=== PATIENT | male | born 1950 | race Caucasian/White ===

== ENCOUNTER 2023-07-27 19:31 | Emergency (ER) | payer MEDICARE, SELFPAY ==
[2023-07-27 19:37] VITALS: BP 123/75; PULSE 93; RESP 18; TEMP 36.8; O2SAT 98; BMI 33.5
--- NOTE | 2023-07-27 19:47 | PC.NURSE ---
area slightly bleeding after band aids removed, finger lac placed in hibiclens soak
--- NOTE | 2023-07-27 19:55 | ED.UPPEXIN1 ---
HPI - Extremity Injury (Upper) General Chief Complaint: Skin/Abscess/Foreign Body Stated Complaint: EXTREMITY INJURY UPPER Time Seen by Provider: 07/27/23 19:51 Source: patient Mode of arrival: walk-in History of Present Illness HPI narrative: Patient is a 73-year-old male who presents to the emergency department for 2 small lacerations to the dorsum of the right fifth finger. Patient states he was working on a car part when he lacerated the dorsum of the finger. No significant pain. Unknown last tetanus. Bleeding is well-controlled. He is right-hand dominant. Related Data Allergies Allergy/AdvReac Type Severity Reaction Status Date / Time No Known Drug Allergies Allergy Verified 07/27/23 19:41 Review of Systems ROS Constitutional Denies: fever or chills Ears, nose, mouth, and throat Denies: throat pain or nasal congestion Respiratory Denies: shortness of breath Gastrointestinal Denies: nausea or vomiting Integumentary/Breast Denies: rash Hematologic/Lymphatic Denies: easy bruising or easy bleeding Exam Narrative Exam Narrative: Gen.: Awake, alert, in no distress Head: Normocephalic, atraumatic ENT: Moist mucous membranes Respiratory: No respiratory distress Extremities: Moves extremities equally, 1.5 cm laceration over the PIP joint of the dorsum of the right fifth finger. Laceration is superficial, there is an adjacent 1 cm laceration Psych: Normal mood and affect Neuro: No focal neuro deficit Skin: Warm, dry Constitutional Vital Signs, click to edit/add: Last Vital Signs Temp 98.2 F 07/27/23 19:37 Pulse 93 H 07/27/23 19:37 Resp 18 07/27/23 19:37 BP 123/75 07/27/23 19:37 Pulse Ox 98 07/27/23 19:37 Course Vital Signs Vital signs: Vital Signs Temperature 98.2 F 07/27/23 19:37 Pulse Rate 93 H 07/27/23 19:37 Respiratory Rate 18 07/27/23 19:37 Blood Pressure 123/75 07/27/23 19:37 Pulse Oximetry 98 07/27/23 19:37 Temperature 98.2 F 07/27/23 19:37 Pulse Rate 93 H 07/27/23 19:37 Respiratory Rate 18 07/27/23 19:37 Blood Pressure 123/75 03/22/24 19:37 Pulse Oximetry 98 07/27/23 19:37 MDM - Extremity Injury (Upper) MDM Narrative Medical decision making narrative: Sutures placed with no difficulty, please see procedure Note for details. Follow-up with PCP and return to the ER if symptoms change or worsen. Tetanus updated in the ER. Laceration repair: Done under sterile conditions. The use of Shur-Clens prep the area. Local injection with lidocaine 1% was used, approximately 3 cc. The wound was irrigated copiously with normal saline. The wound was explored there was no evidence of foreign material. The laceration was approximated with 3-0 nylon. 3 simple interrupted sutures were placed. Patient tolerated the procedure well. The patient was neurovascularly intact post. the patient had bacitracin applied to the laceration and a dry sterile dressing was place. The patient will need to follow-up in the next 7-10 days for removal Medical Records Attestation: I reviewed the patient's medical records. Discharge Plan Discharge Stand Alone Forms: Portal Instructions Chief Complaint: Skin/Abscess/Foreign Body Clinical Impression: Finger laceration Patient Disposition: Home, Self-Care Time of Disposition Decision: 19:54 Condition: Good Print Language: Nepalese Instructions: Finger Laceration (ED) Additional Instructions: Sutures removed in 7-10 days with your PCP Referrals: Physician,Non-Staff, MD [Primary Care Provider] - 1 week Discharge Date/Time: 07/27/23 20:22
[2023-07-27] MEDS: BACITRACIN 0.9 GM PACKET 1 PACKET TOPICAL (20:03)
[2023-07-27] MEDS: LIDOCAINE HCL 1% 100 MG/10 ML MDV INJ (20:04)
[2023-07-27] MEDS: ADACEL DIPH,PERTUSS(ACELL),TET VAC/PF 0.5 ML ADULT SYRINGE IM (20:04)
== END 2023-07-27 20:22 | disposition home or self-care (01) ==
PROVIDERS: Emergency Provider Emergency Medicine
DX: S61.216A Laceration without foreign body of right little finger without damage to nail, initial encounter (principal); Z23 Encounter for immunization; W26.8XXA Contact with other sharp object(s), not elsewhere classified, initial encounter
CPT/HCPCS: 12001; 90471; 90715; 99284

== ENCOUNTER 2024-03-25 07:55 | Emergency (ER) | payer MEDICARE, SELFPAY ==
[2024-03-25 07:58] VITALS: BP 146/53; PULSE 74; TEMP 36.4; O2SAT 99; BMI 31.9
--- NOTE | 2024-03-25 08:10 | ED_ITS ---
HPI - Wound/Laceration General Chief Complaint: Wound/Laceration Stated Complaint: LACERATION Time Seen by Provider: 03/25/24 07:57 Source: patient Mode of arrival: walk-in History of Present Illness HPI narrative: 74-year-old male presents to the emergency department for laceration to the palm of his left hand which was sustained yesterday on a sharp edge of metal. There is no concern no foreign body and there was no glass involved he had a tetanus shot within the last year. His wanted him to come in to get checked. Related Data Home Medications ?Medication ?Instructions ?Recorded ?Confirmed atorvastatin 20 mg tablet mg 03/25/24 latanoprost 0.005 % eye drops drp ophthalmic (eye) 03/25/24 lisinopril 40 mg tablet mg 03/25/24 metformin 850 mg tablet mg 03/25/24 metoprolol succinate 25 mg mg PO 03/25/24 tablet,extended release 24 hr pioglitazone 30 mg tablet mg 03/25/24 spironolactone 25 mg tablet mg 03/25/24 Previous Rx's ?Medication ?Instructions ?Recorded cephalexin 500 mg capsule 500 mg PO TID 7 days #21 caps 03/25/24 Allergies Allergy/AdvReac Type Severity Reaction Status Date / Time No Known Drug Allergies Allergy Verified 03/25/24 08:02 Review of Systems ROS Narrative A ten point review of systems is negative except as noted above. PFSH PFSH Social History Little interest or pleasure in doing things: not at all Feeling down, depressed, or hopeless: not at all Exam Narrative Exam Narrative: Nurses note and vital signs reviewed and patient is not hypoxic. General: The patient appears well and in no apparent distress. Patient is resting comfortably on cart. Skin: Warm, dry, no pallor noted. There is no rash noted. Head: Normocephalic, atraumatic Eye: Normal conjunctiva, no drainage Ears, Nose, Mouth, and Throat: oral mucosa is moist. Nares patent. Cardiovascular: Not tachycardic Respiratory: Patient is in no distress, no accessory muscle use GI: Nontender Musculoskeletal: On the palm of his left hand approximately is a curved laceration 1.5 cm in length. It appears to be healing. There is mild infl ammation around it and some minimal erythema but no purulent drainage or lymphangitis. Neurological: A&O, normal speech Psychiatric: Cooperative Constitutional Vital Signs, click to edit/add: Last Vital Signs Temp 97.6 F 03/25/24 07:58 Pulse 74 03/25/24 07:58 Resp 18 03/25/24 07:58 BP 146/53 H 03/25/24 07:58 Pulse Ox 99 03/25/24 07:58 O2 Del Method Room Air 03/25/24 07:58 Course Vital Signs Vital signs: Vital Signs Temperature 97.6 F 03/25/24 07:58 Pulse Rate 74 03/25/24 07:58 Respiratory Rate 18 03/25/24 07:58 Blood Pressure 146/53 H 03/25/24 07:58 Pulse Oximetry 99 03/25/24 07:58 Oxygen Delivery Method Room Air 03/25/24 07:58 Temperature 97.6 F 03/25/24 07:58 Pulse Rate 74 03/25/24 07:58 Respiratory Rate 18 03/25/24 07:58 Blood Pressure 146/53 H 03/25/24 07:58 Pulse Oximetry 99 03/25/24 07:58 Oxygen Delivery Method Room Air 03/25/24 07:58 MDM - Wound/Laceration MDM Narrative Medical decision making narrative: Tetanus is up-to-date. Sutures are not indicated. He is placed on Keflex. Treatment diagnosis and follow-up were discussed with the patient. Differential Diagnosis Differential diagnosis: Likely laceration and avulsion of skin Discharge Plan Discharge Chief Complaint: Wound/Laceration Clinical Impression: Laceration Patient Disposition: Home, Self-Care Time of Disposition Decision: 08:09 Condition: Good Mode of Transportation: Private Vehicle Prescriptions / Home Meds: New cephalexin 500 mg capsule 500 mg PO TID 7 Days Qty: 21 0RF No Action latanoprost 0.005 % drops OPHTHALMIC (EYE) atorvastatin 20 mg tablet metformin 850 mg tablet spironolactone 25 mg tablet metoprolol succinate 25 mg tablet extended release 24 hr PO pioglitazone 30 mg tablet lisinopril 40 mg tablet Print Language: Slovenian Instructions: Laceration Without Closure (ED) Referrals: Physician,Non-Staff, MD [Primary Care Provider] - 1 week
== END 2024-03-25 08:29 | disposition home or self-care (01) ==
PROVIDERS: Emergency Provider Emergency Medicine
DX: S61.412A Laceration without foreign body of left hand, initial encounter (principal); W26.8XXA Contact with other sharp object(s), not elsewhere classified, initial encounter
CPT/HCPCS: 99283

== ENCOUNTER 2024-06-23 11:14 | Outpatient (OUT) | payer MEDICARE, SELFPAY ==
--- NOTE | 2024-06-23 | XR_ITS ---
The [address] [address] Patient Name: TITUS VERA MRN: [id number] date: 1950 Sex: M Assigned Patient Location: Current Patient Location: Accession/Order Number: [id number] Exam Date: 06/23/2024 11:59 Report Date: 06/23/2024 15:42 At the request of: AYESHA FLORES Procedure: XR femur LT 2V EXAM: XR hip LT 2V w/ pelvis, XR femur LT 2V 06/23/2024. HISTORY: LEFT HIP AND PELVIS PAIN COMPARISON: Radiographs of the pelvis and right hip obtained at [facility] 08/03/2022. FINDINGS: Pelvis and left hip: There are degenerative changes again seen of the visualized lower lumbar spine and sacroiliac joints. There are also at least moderate focal degenerative changes of the superolateral aspect of the right hip joint again seen. There is a dynamic hip screw in the left femoral head/neck and there is an intramedullary nail extending through the femoral shaft with a single distal interlocking screw. No hardware complication is seen. No acute fracture or dislocation is identified. There is no significant joint space narrowing of the left hip. Left femur: There are vascular calcifications medially. No acute fracture or dislocation is seen. There appears to be at least moderate narrowing of the medial femorotibial compartment of the knee. No joint effusion is seen. XR/XR femur LT 2V IMPRESSION: 1. There are postsurgical changes involving the left femur and left hip as described above without evidence of hardware complication. No acute fracture or dislocation is seen. 2. 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 3. There again appear to be at least moderate focal degenerative changes of the superolateral aspect of the right hip joint. Electronically authenticated by: YANNICK CONWAY Date: 06/23/2024 15:42
--- NOTE | 2024-06-23 | XR_ITS ---
The [address] [address] Patient Name: TITUS VERA MRN: [id number] date: 1950 Sex: M Assigned Patient Location: Current Patient Location: Accession/Order Number: [id number] Exam Date: 06/23/2024 11:42 Report Date: 06/23/2024 15:42 At the request of: AYESHA FLORES Procedure: XR hip LT 2V w/ pelvis EXAM: XR hip LT 2V w/ pelvis, XR femur LT 2V 06/23/2024. HISTORY: LEFT HIP AND PELVIS PAIN COMPARISON: Radiographs of the pelvis and right hip obtained at [facility] 08/03/2022. FINDINGS: Pelvis and left hip: There are degenerative changes again seen of the visualized lower lumbar spine and sacroiliac joints. There are also at least moderate focal degenerative changes of the superolateral aspect of the right hip joint again seen. There is a dynamic hip screw in the left femoral head/neck and there is an intramedullary nail extending through the femoral shaft with a single distal interlocking screw. No hardware complication is seen. No acute fracture or dislocation is identified. There is no significant joint space narrowing of the left hip. Left femur: There are vascular calcifications medially. No acute fracture or dislocation is seen. There appears to be at least moderate narrowing of the medial femorotibial compartment of the knee. No joint effusion is seen. XR/XR hip LT 2V w/ pelvis IMPRESSION: 1. There are postsurgical changes involving the left femur and left hip as described above without evidence of hardware complication. No acute fracture or dislocation is seen. 2. 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 3. There again appear to be at least moderate focal degenerative changes of the superolateral aspect of the right hip joint. Electronically authenticated by: YANNICK CONWAY Date: 06/23/2024 15:42
== END 2024-06-23 11:15 | disposition home or self-care (01) ==
LOC: EC 11:14
PROVIDERS: Visit Provider Orthopaedic Surgery
DX: M25.552 Pain in left hip (principal); Z98.890 Other specified postprocedural states
CPT/HCPCS: 73502; 73552

== ENCOUNTER 2024-07-01 09:56 | Outpatient (RCR) | payer MEDICARE, SELFPAY | END 2024-08-14 07:23 | disposition home or self-care (01) | LOC: PT 09:56 | PROVIDERS: Visit Provider Orthopaedic Surgery | DX: S72.002D Fracture of unspecified part of neck of left femur, subsequent encounter for closed fracture with routine healing (principal); M25.552 Pain in left hip; R26.89 Other abnormalities of gait and mobility; R26.9 Unspecified abnormalities of gait and mobility | CPT/HCPCS: 97110; 97112; 97116; 97161; 97530 ==

== ENCOUNTER 2024-07-21 10:31 | Outpatient (OUT) | payer MEDICARE, SELFPAY ==
--- NOTE | 2024-07-21 | XR_ITS ---
The [address] [address] Patient Name: TITUS VERA MRN: [id number] date: 1950 Sex: M Assigned Patient Location: Current Patient Location: Accession/Order Number: [id number] Exam Date: 07/21/2024 13:19 Report Date: 07/21/2024 13:20 At the request of: AYESHA FLORES MD Procedure: XR hip LT 2V w/ pelvis Left hip 2 views of the 1 view pelvis. Reason for exam: Follow-up from surgery April. Left hip/pelvis pain. COMPARISON: Left hip series 06/23/2024. FINDINGS: Left hip hardware partially visualized by loops of hardware complication. No acute fracture line is seen. Mild degenerative changes of the hips. Degenerative changes noted involving the SI joints and pubic symphysis. XR/XR hip LT 2V w/ pelvis IMPRESSION: Partially visualized left hip hardware without radiographic complication. No acute fracture line is seen. Impression dictated by: Juancho Menjivar Jr., D.O.07/21/2024 1:20 PM Dictation Location: [place] [address] Electronically authenticated by: [id number] Date: 07/21/2024 13:20
--- OUTSIDE RECORDS SUMMARY | 2024-07-21 10:41 | XMS_ITS | CCD ---
Author Organization [facility] Care Team Providers Care Wood Technologist Name Role Phone DR PIO FLORES Admitting Unavailable SANDRA, DR SUERO Attending Unavailable SANDRA, DR SUERO Consulting Unavailable MISC, DR BUTLER Primary Care Unavailable Osbaldo Feliz Consulting Unavailable Regine Birmingham Consulting Unavailable Regine Vital Unavailable Mummert DO, Pablo W Primary Care Provider MUMMERT, PABLO W Primary Care Unavailable KATERYNA MATHIS Admitting Unavailable KATERYNA MATHIS Attending Unavailable KATERYNA MATHIS Referring Unavailable MUMMERT, PABLO W Primary Care Unavailable MD Regine Vital Attending Provider [phone] MD Regine Vital Attending Provider Mummert, DO Pablo Primary Care Provider SABINA DAS Attending Unavailable SABINA DAS Attending Unavailable ZASABINA CHRISTIANSON Attending Unavailable Mummert DO, Pablo W Primary Care Provider [phone] Hernan OD, Georges Unavailable Mummert, Pablo Primary Care Unavailable Hawk Espinosa Attending Unavailable Hawk Espinosa Admitting Unavailable Mummert DO, Pablo Primary Care Unavailable Mummert DO, Pablo Attending Unavailable Mummert DO, Pablo Attending Unavailable Mummert DO, Pablo Primary Care Unavailable Mummert DO, Pablo Attending Unavailable Mummert DO, Pablo Primary Care Unavailable Mummert DO, Pablo Attending Unavailable Mummert DO, Pablo Primary Care Unavailable Mummert DO, Pablo Primary Care Unavailable Mummert DO, Pablo Admitting Unavailable Mummert DO, Pablo Attending Unavailable Mummert DO, Pablo Primary Care Unavailable Mummert DO, Pablo Attending Unavailable Mummert DO, Pablo Admitting Unavailable Mummert DO, Pablo Attending Unavailable Mummert DO, Pablo Admitting Unavailable Mummert DO, Pablo Primary Care Unavailable Mummert DO, Pablo Attending Unavailable Mummert DO, Pablo Admitting Unavailable Mummert DO, Pablo Primary Care Unavailable Kateryna Mathis Admitting Unavailable Kateryna Mathis Attending Unavailable Mummert DO, Pablo Primary Care Unavailable Mummert DO, Pablo Attending Unavailable Mummert DO, Pablo Primary Care Unavailable Mummert DO, Pablo Primary Care Unavailable Mummert DO, Pablo Attending Unavailable Mummert DO, Pablo Admitting Unavailable Mummert DO, Pablo Primary Care Unavailable Mummert DO, Pablo Attending Unavailable Mummert DO, Pablo Attending Unavailable Mummert DO, Pablo Primary Care Unavailable Medications Current Medications Medication Drug Class(es) Dates Sig (Normalized) Sig (Original) aspirin 81 mg delayed release oral tablet (2 sources) Platelet Aggregation Inhibitor, Nonsteroidal Anti-inflammatory Drug take 1 tablet by mouth in the morning aspirin 81 MG EC tablet Take 81 mg by mouth in the morning. Active cefepime (MAXIPIME) 1000 mg IVPB minibag (1 source) Start: 12-06-2021 End: 12-11-2021 cefepime (MAXIPIME) 1000 mg IVPB minibag ciprofloxacin 500 mg oral tablet (2 sources) Quinolone Antimicrobial Start: 12-23-2021 take 1 tablet by mouth every twelve hours ciprofloxacin (Cipro) 500 MG tablet Take 500 mg by mouth every 12 (twelve) hours. 12/23/2021 Active fluticasone propionate 0.05 mg/actuat metered dose nasal spray (4 sources) Corticosteroid Start: 02-10-2022 fluticasone (Flonase) 50 MCG/ACT nasal spray Nasal for 30 Days 02/10/2022 Active Fluticasone Prop ionate Active latanoprost 0.05 mg/ml ophthalmic solution (8 sources) Prostaglandin Analog Start: 04-25-2023 End: 04-24-2024 take 1 drop(s) into the eye(s) at bedtime latanoprost (Xalatan) 0.005 % ophthalmic solution Indications: Primary open angle glaucoma (POAG) of both eyes, mild stage (CMS/HCC) Administer 1 drop into both eyes at bedtime 2.5 mL 6 04/25/2023 04/24/2024 Active Start: 12-07-2021 1 drop, Both E yes, NIGHTLY, First dose on Sun12/07/21 at 2100, Until Discontinued Latanoprost Acti ve take 1 drop(s) into the eye(s) once daily latanoprost (XALATAN) 0.005 % ophthalmic solution Place 1 drop into both eyes nightly 0 Active ondansetron (ZOFRAN-ODT) disintegrating tablet 4 mg (1 source) Start: 12-06-2021 ondansetron (ZOFRAN-ODT) disintegrating tablet 4 mg pioglitazone 30 mg oral tablet (9 sources) Peroxisome Proliferator Receptor alpha Agonist, Peroxisome Proliferator Receptor gamma Agonist, Thiazolidinedione Start: 03-27-2022 pioglitazone (Actos) 30 MG tablet 1 (one) time each day at the same time. 03/27/2022 Active Start: 12-06-2021 take 30 mg by mouth once daily 30 mg, Oral, DAILY, First dose on Sun12/06/21 at 1615, Until Discontinued take 1 tablet by nehemiah th in the morning pioglitazone (ACTOS) 30 MG tablet Take 30 mg by mouth in the morning. 0 Active Actos Active prednisoLONE acetate 10 mg/ml ophthalmic suspension (2 sources) Corticosteroid Start: 05-18-2022 take 1 drop(s) into the eye(s) four times daily prednisoLONE acetate (Pred-Forte) 1 % ophthalmic suspension INSTILL 1 DROP INTO AFFECTED EYE FOUR TIMES A DAY FOR 4 DAYS 05/18/2022 Active sildenafil (2 sources) Phosphodiesterase 5 Inhibitor Viagra Active Spironolactone (2 sources) Aldosterone Antagonist Spironola ctone Active Completed/Discontinued Medications Medication Drug Class(es) Dates Sig (Normalized) Sig (Original) amLODIPine 5 mg oral tablet (3 sources) Dihydropyridine Calcium Channel Kathleen Start: 03-24-2021 End: 11-30-2021 take 1 tablet by mouth in the morning amLODIPine (NORVASC) 5 MG tablet Take 5 mg by mouth in the morning. 0 03/24/2021 11/30/2021 Discontinued (LIST CLEANUP) amLODIPine Benzoate 1 MG/ML (4 sources) take 1 mg by mouth once daily amLODIPine Benzoate 1 MG/ML 5 ml Orally Once a day Not-Taking take 1 mg by mouth once daily am LODIPine Benzoate 1 MG/ML 5 ml Orally Once a day Active atorvastatin 10 mg oral tablet (8 sources) HMG-CoA Reductase Inhibitor Start: 12-06-2021 take 10 mg by mouth once daily 10 mg, Oral, DAILY, First dose on Sun12/06/21 at 1445, Until Discontinued Start: 03-24-2021 take 1 tablet by nehemiah th in the morning atorvastatin (LIPITOR) 10 MG tablet Take 10 mg by mouth in the morning. 0 03/24/2021 Active take 1 tablet by nehemiah th in the morning atorvastatin (Lipitor) 20 MG tablet Take 20 mg by mouth in the morning. Active take 1 tablet by nehemiah th every twenty-four hours Atorvastatin Calcium 40 MG 1 tablet Orally Once a day Active belladonna alkaloids 16.2 mg / opium 30 mg rectal suppository (1 source) Start: 12-06-2021 take 30 mg rectal route every six hours as needed mg dosing is based on opium component 30 mg, Rectal, EVERY 6 HOURS PRN, Starting on Sun12/06/21 at 1415, Until Discontinued, Bladder Spasms PRN for bladder spasms. calcium chloride 0.0014 meq/ml / potassium chloride 0.004 meq/ml / sodium chloride 0.103 meq/ml / sodium lactate 0.028 meq/ml injectable solution (1 source) Start: 12-07-2021 End: 12-06-2021 lactated ringers infusion Start: 12-07-2021 End: 12-06-2021 lactated ringers infusion docusate sodium 100 mg oral capsule (1 source) Start: 12-06-2021 take 100 mg by mouth twice daily 100 mg, Oral, 2 TIMES DAILY, First dose on Sun12/06/21 at 2100, Until Discontinued Do not crush or break. 0.4 ml enoxaparin sodium 100 mg/ml prefilled syringe (1 source) Low Molecular Weight Heparin Start: 12-07-2021 inject 40 mg by subcutaneous injection once daily 40 mg, SubCUTAneous, DAILY, First dose on Sun12/07/21 at 0900, Until Discontinued Indication of Use: Prophylaxis-DVT/PE insulin, regular, human 100 unt/ml injectable solution (1 source) Insulin Start: 12-06-2021 End: 12-06-2021 insulin regular (HUMULIN R;NOVOLIN R) injection 4 Units Start: 12-06-2021 End: 12-06-2021 insulin regular (HUMULIN R;N OVOLIN R) injection 4 Units lisinopril 40 mg oral tablet (9 sources) Angiotensin Converting Enzyme Inhibitor Start: 03-24-2021 take 40 mg by mouth once daily 40 mg, Oral, DAILY, First dose on Sun12/06/21 at 1615, Until Discontinued Lisinopril Activ e metFORMIN hydrochloride 850 mg oral tablet (9 sources) Biguanide Start: 03-24-2021 take 850 mg by mouth twice daily at mealtime 850 mg, Oral, 2 TIMES DAILY WITH MEALS, First dose on Sun12/06/21 at 1700, Until Discontinued metFORMIN HCl Ac tive 24 hr metoprolol succinate 25 mg extended release oral tablet (7 sources) beta-Adrenergic Kathleen Start: 12-07-2021 take 25 mg by mouth once daily 25 mg, Oral, DAILY, First dose on Sun12/07/21 at 0900, Until Discontinued Do not crush or chew. Start: 11-10-2021 take 1 tablet by nehemiah th every twenty-four hours metoprolol succinate XL (Toprol-XL) 25 MG 24 hr tablet Oral for 90 Days 11/10/2021 Active Start: 11-10-2021 take 1 tablet by nehemiah th in the morning metoprolol succinate (TOPROL XL) 25 MG extended release tablet Take 25 mg by mouth in the morning. 0 11/10/2021 Active Metoprolol Succi allie Active 24 hr oxybutynin chloride 5 mg extended release oral tablet (7 sources) Cholinergic Muscarinic Antagonist Start: 03-24-2021 End: 11-30-2021 take 1 tablet by mouth in the morning oxybutynin (DITROPAN-XL) 5 MG extended release tablet Take 5 mg by mouth in the morning. 0 03/24/2021 11/30/2021 Discontinued (LIST CLEANUP) take 1 tablet by mouth once brandon y oxybutynin XL (Ditropan-XL) 5 MG 24 hr tablet TAKE 1 TABLET BY MOUTH EVERY DAY Oral for 90 Days Active apply 1 dose transde rmal route two times weekly Oxybutynin 3.9 MG/24HR 1 patch to skin Transdermal Two times a Week Not-Taking apply 1 dose transde rmal route two times weekly Oxybutynin 3.9 MG/24HR 1 patch to skin Transdermal Two times a Week Active 1000 ml sodium chloride 9 mg/ml injection (1 source) Start: 12-06-2021 End: 12-07-2021 IntraVENous, at 100 mL/hr, CONTINUOUS, Starting on Sun12/06/21 at 1445 tamsulosin hydrochloride 0.4 mg oral capsule (6 sources) alpha-Adrenergi c Kathleen Start: 03-24-2021 take 0.4 mg by mouth once daily 0.4 mg, Oral, DAILY, First dose on Sun12/06/21 at 1615, Until Discontinued Do not crush or break. traMADol hydrochloride 50 mg oral tablet (1 source) Opioid Agonist Start: 12-06-2021 take 50 mg by mouth every six hours as needed 50 mg, Oral, EVERY 6 HOURS PRN, Starting on Sun12/06/21 at 1415, Until Discontinued, Pain Severe (7-10), Pain Moderate (4-6) Problems Problem Classification Problem Date Documented Date Episodic/Chronic Cataract (5 sources) Age-related nuclear cataract of right eye; Translations: [Age-related nuclear cataract, right eye] Onset: 11-01-2022 Resolved: 04-25-2023 04-25-2023 Chronic Conditions associated with dizziness or vertigo (4 sources) Dizziness and giddiness; Translations: [DIZZINESS AND GIDDINESS] Onset: 09-11-2021 Episodic Diabetes mellitus without complication (3 sources) Type 2 diabetes mellitus without complication; Translations: [Type 2 diabetes mellitus without complications] Onset: 04-25-2023 04-25-2023 Chronic Essential hypertension (8 sources) Essential hypertension; Translations: [Essential (primary) hypertension] Onset: 06-01-2021 Resolved: 06-01-2021 Chronic Fluid and electrolyte disorders (1 source) Hypo-osmolality and hyponatremia; Translations: [HYPO-OSMOLALITY AND HYPONATREMIA] Onset: 09-13-2021 Episodic Glaucoma (3 sources) Primary open angle glaucoma; Translations: [Primary open-angle glaucoma, bilateral, mild stage] Onset: 11-01-2022 11-01-2022 Chronic Hyperplasia of prostate (3 sources) Benign prostatic hyperplasia; Translations: [Benign prostatic hyperplasia with lower urinary tract symptoms] Onset: 12-06-2021 Chronic Inflammation; infection of eye (except that caused by tuberculosis or sexually transmitteddisease) (3 sources) Blepharitis of upper and lower eyelids of bilateral eyes; Translations: [Unspecified blepharitis right eye, upper and lower eyelids] Onset: 11-01-2022 11-01-2022 Episodic Other eye disorders (3 sources) Dry eyes; Translations: [Dry eye syndrome of bilateral lacrimal glands] Onset: 11-01-2022 11-01-2022 Episodic Other non-traumatic joint disorders (1 source) Pain in right ankle and joints of right foot; Translations: [Pain in right ankle and joints of right foot] Onset: 03-28-2024 Episodic Other nutritional; endocrine; and metabolic disorders (8 sources) Body mass index 30+ - obesity; Translations: [Body mass index (BMI) 31.0-31.9, adult] Chronic Other nutritional; endocrine; and metabolic disorders (1 source) Body mass index (BMI) 31.0-31.9, adult Onset: 06-01-2021 Resolved: 06-01-2021 Chronic Other nutritional; endocrine; and metabolic disorders (2 sources) Body mass index (BMI) 32.0-32.9, adult Chronic Residual codes; unclassified (14 sources) Obstructive sleep apnea syndrome; Translations: [Obstructive sleep apnea (adult) (pediatric)] Chronic Residual codes; unclassified (5 sources) Sleep apnea; Translations: [Sleep apnea, unspecified] Chronic Residual codes; unclassified (4 sources) Obstructive sleep apnea (adult) (pediatric) Onset: 06-01-2021 Resolved: 10-26-2021 Chronic Residual codes; unclassified (1 source) Idiopathic sleep related nonobstructive alveolar hypoventilation Onset: 06-01-2021 Resolved: 06-01-2021 Chronic Residual codes; unclassified (1 source) Other specified health status Episodic Residual codes; unclassified (1 source) Other amnesia; Translations: [Other amnesia] Onset: 06-24-2024 Episodic Results Test Name Value Interpretation Reference Range Facility Patient Provided Health Data on 07-02-2024 Patient Provided Health Data [id number]#[facility] Provider Orders [id number]#[facility] [id number]#1 .00[facility] Coding Summaryon 07-01-2024 Coding Summary HTMLBase 64 TtxltwlwHCi5xPh+PGhlY WQ+FM0FPDEiF03okHNgxK 0tP9EAZAjQMuxsUGJYEWz RVkDskaYiGJ6huREvHLQf IC8+MK6xKPWlZjgpgYPvl 6C2nTF0B71iaf5iOVwqrM F3NLLvAgGngnqja9eebRa 6IDcuNmluOyBt TUIdoE98QCE8bC77Ct67x VBwsRSdy1zlsDh7HpJdMB PjAFF2iSjhREwfg3AvCYH oD58lbVFij4A1 JDFyzGsscHYxEaQtvWQ3a N0eAJxyvxabh7zkmhktVm q5cg94gGWxn5C3eYB1N1T sgeX3QIBewPAr EcozpPMEzY7qmlzor4nph yqjEfOiDMPlVLd3NUa1XO MoxQwsDyZyXY84SLM3SRX gkcQhB1BrLFGf oVleItY3u2Y9Ud3CI5EKF rfuA4FGFUGPLClxvEU+PC 20oo22Y6IdAgqsCpo6NWL yLWV6lOS3vT1b DBSiDIckw1N5vNQ4P9Bda wKkme0fg3ehVEHhJQlwT0 8veNZnq6S6QDQeoLC5GDR paSjgIsPzeK98 Oyc+HUCbwAprv7NyKovae 4jsp6hdzKb0TwjbAETehm YfaQfhARC7l6XzZm8sZAC qfKD7eCY8hU1c QhAtLqX6HInuJ448SnGei JPjBxbcB63rU8EveDL+PH AsIsw1NGXdxHqdDU1jE2S hZGRpbmctbGVm eRqwOL3cNQNmdxelPHRpq G0hBGGlM3x7QvBnBoW0PF neK9MfUCIakllvQd44tU2 oNjZnSvF3RPlw H4AwtpI7OAHgeOZjVDlqJ DW2Y77yl6P3ZRAgLTAjZX Z7gPA4gR5tsRqgzufjsFQ mdDsgdmVydGlj XKqgHJdzI265CXDqcBvkH kNvZGluZyBEYXRlOiAgMD IvMjUvMjAyNTwvdGQ+PHR sQFN4wIwhMLIm nEPdQUfkEo8rmBqadFytP E7yHYNjwiswJOLogP9bFN AfgZRhaHrqMG4yMJWknog sk962HsWcTKD8 ESUomURlY3YskE9rFbDkS EXgIZGwH4IimBWbSUtyH5 31HPebRbH5GOAfdzOkR4W sLWFsaWduOiB0 p5C7Th4Eo2EizbgoY0Axc LDzEcZuZjhvNNb5N2JcBo wvdHI+JY92VWMhTG66PWe 6ZNK0lDjoYBtm VICeY0OevI5xPaJwVPGqD GRkOyc+PHRhYmxlIHdpZH RoPScxMDAlJyBzdHlsZT0 wMb3vGBBjIHUu rGicpTUcTnXex3oqCESqX QnqCN4haTxiA6CthQB0IL Wea8e2Wd37B52aE6KtlPA +SLWxlEI6fOH4 jY1tFdRxZeA7DEjfK480A zWgxDHoIfisj0abs0zqlM v3NqD2IKRqbrVheXeeOPJ 8h5QyBl31W99k IHdpZHRoPSIxNSUiIHZhb Ulvtg8hnZ4rHz2+PGNvbC J7mYG6hX7wUqOoTxN0BZk wI989YtZteARw Fkien2sas4rjsBd8DoByN DNlbeKczKlkTUL6c0JoSk 67J8CeiSmhm1GkBxt5rg0 7kBTom3E6vNB9 N8WzMGDcbwungGBqfAncA T2jWCGhepfqUYAiyI3rHA JoG7v5AdMuUwW8DMnnP1Y cpxU6TMTqxUAy UBDwxUGChI8xhroxk4zpt gymEtXcGDMeMAv6VXi4AB JdbDzjBwQlLWH7ZqI6MDB 3pQZbwK8baVmj uitmbP5rLus+FML4iTYmd VUQGS3pEosroET+PHRkIH K1vYutZZvhBTHofP9hCRL mB0t6TqVfWlA0 TUrxL1GcijS8QGFajSFqR MDdjYQNgE5ixgtba5fwbk knPqRpQEQxANr8ISv3RPZ saWduOiBsZWZ0 OhD3UYR9rPTroW5rkFsnl fgahW1xPnt+QmlydGggRG X4BWd1D0VjNls0DWEjfVw dQU8haGEeCUqn Jq5wqIwztVslZQ8yJFFwf uqcu186DwTro5gwMZPeyF CiOVnqEWL0X78mt6W3YRK bESQcINN1xYY6 qC4iqLpprzcyzISmrHvnq iRiqIsuDWkeSWqcR252RL MxmJjaDmMpCIr4S0RfMql 4EMWdhAltPV7t gABmDAnhXq1flPsiuIlpG R7kMZWdeklzx838CdQfr5 pfMBNzhMOrHCihPSS9Q99 jo0N2NOJmLNKe KXA7dYT9yI2rsAmzbwobf GVmdDsgdmVydGljYWwtYW edL014JWBktEqgMpDfhRd 8J8CvXuf8NQDl mWhhBM2hjXJfPNnpNf1on OtijDbsSQ5lJUNinqqsc9 65AyTlh8ybYOYgeUWoZYe bSHK3L21qd1X2 REKyYBWlULH6iGM9lF6gp GlnbjogbGVmdDsgdmVydG clRXmcNRmbU034RXGxrUy nPlBhdGllbnQg SHdbWSp2K0XpJaogiQX+P B84RLChJQ15xLUqpWNzq0 qupXk6IpBzELTmPZK3tSz cQJuhb4HcSSIn K33jvTIsh9L2FYRuqRydn VZmYrDtuMN8mV9xSRgffq ofu5kxqxotFikmn4owxw5 9tS28C95yQFkd ZHRoPSIzMCUiIHZhbGlnb k4dxC9xQp0+CIZluSN1vP V0aK6bRFAuOlZ9IMexP28 9InRvcCIvPjxj q0wdi9wgtDv4IiA4FGNei wBncWguJYZ0q2JdIb38E8 9sIHdpZHRoPSIyMCUiIHZ wnCvwjm5siC8a Ii8+AJSatTI1jTG0uW2gO zHuAcM9SUxyJ335GjNiyD CkUmzvD19gX9LasDB+PHR qZqm4UMFzyZsc GO7pzBIjXUmvJe6mOCD5F rXhTaGgXSdwV6ZaSTSkrz rwelrbbVF4YNIcIVVyyH6 7Oq8ygZoeHVQx iURAsD0tcinop9lzsbqhK mQoETDnBOz5RNz5KTVtkF iuUzGkSEY8NmK9GHG6qQE ruQ7jrQfilfst jC7bD3PrIACxuveoFx86r F1qWsNjVcV4ADzuWbb+U0 9XRVJTLCBXSUxMSUFNIEZ LMJ9VWAG0Q2Cm Fux9LTZwaYmmQG8cdGIyW TxdIf6oyEldeQmdBJ6rVR IslgejIHPtcL7lMAAsiTX nhMokLS8xXRZo gavvv609RhFeJJW2SYCva BWjQ8XuiV2aMjKkOMCbTT VbK1XffPQcLQboA272FMd lZdB4TKLerkHk Y5YlMJTwnDnlTqI0d9E7F u5jKK7vMD8qQGZ7GZ37QR 62qGEof2S7kPJ6R2LbDKB pbmctcmlnaHQ6 CSSlPSCxsD26qALkTKimA k5xn1Y1i035RALaFIQxcO 53Eo1gqTeuUFGrxSNYwD9 onnqch0kgwkzi ErNkFVRhCAj4JYb9MVLyh WtkTuCmQCA7UrR1GNF3rK HsgJ7dkPuiqtcgpY9kQni +NzYgWWVhcnM8 Q2EdOjc4NQLtcKkuKO2os YYgRQtfHs6irImpeSaoBN 8vVRPowrvbIGGdiR0nODH rmHYziOlzGG9t OTDdmlsvf254OpEsPRF3W TMxtUZzG2NzeV2zWkHhYJ PpGMBuY6WksCSwNMevR72 3ASolPaV6QULz knRbC9QuLWPphXntJmD0q 8J5Wg2JGTmNLG89XQ88fJ Wtu5N5uGM1C7SjDJUsopi mqcbrqYQ1OZAy BMXyiJ02iJBgHRhgFb0sj 6A6i817JFOnWCSclK10Kf 4hhYvtKLEhtWDUjD2tmoy pj8dbemwpPdMy JECfJKr4ZPs5YBLpiDlhE yRmJTG6AqN3ZUZ9zNVahW 1tsYunmjzguE3bSce+T1A 9R0WyWbfxrEM+ AX20JKFxFP68zWVsyYChl 4kgtHw9WgYxTNIaWJX4eJ wbUCzlc2GxUZYhJ69wjLC hh2W0DQJymBlo aUBqYrPblDK3hB3dFDbkn dhir4ysktjtEarml8sfmf 91oF62V05gXXawUYNmANI zMCUiIHZhbGln ty8kuY2pHs7+INEdvEE6z RF9fH5cInXqFcP3FWayI7 32BnSzuWUnYhogr9vri3c ymFu5IrScSTDn oqDsiVvuMGO3h8PtUg11X 29sIHdpZHRoPSIyMCUiIH OwbKhsuf9drA2dZp3+PC9 gl0dnci57zZ74 dHI+RGQiASJ8xXlwNArhX QJifM6oHLgbJmE5PBHvWf OqpT57iHPpXMapWq2loOy zuVwlCN7hDUKo uakqk300BpCoz0rfVDOnj LTzGCwnARA4C04mn8M4RC HzFMLgSCI5kLR7nS1qhFf nbjogbGVmdDsg dzRlgUfuDVywTUqfB060I ADmbOeqBfJbaIPrO9tgcm UGBI4qZavyuZJ+PHRkIHN 0eWxlPSdwYWRk uF8dVXXvC0p7VoMgOmB6N WdfW5XrnvX4OMUxcRDnXB AieGUVoD9yewogs3jftib gIzAwMDAwMDt0 FVv0KVMsxJjnZcUgSKS2A zP6NTT1dTUmwJ9acVrjdy pxyV5zPte+RklOOjwvdGQ +LUYtBBX7kYfy XEmaSOCupY2fITVmE2w6Z gWgNhI6TGbwE1DhvaB7AQ XadYSfQPRcyZMYoU9amey ey4qhczagOvMn ZLGaQRy2TBk8YEYazOgdR nQjPYP9GiK1GPD2cSZczI 0wgVttrywrpN2vPhg+TVJ OOjwvdGQ+PHRk WAP0aKgxKPjeBXCemA4hP WBlY6m2DkJoPeG7NYygM4 LszlL5PAQomOLnCCFfrUN MgV8eiwwss3ue bymwSqNiWILgENa6FKq4S CHljQupVvTlMQH9SgT5QT H8hWXbpG7rqMnaloploW4 wOyc+ZNR8OCO1 LV94TE19R4XoDlzcjWFtj +PHRhYmxlIHdpZHRoPS wbSKNoJlDywFhpUL8vOr4 yZGVyLWNvbGxh cHN (more content not included)... [facility] TSHon 06-24-2024 TSH Qn 1.30 m[IU]/L Normal 0.45-5.33 [facility] Comment on above: Performed By: #### 2 [id number], [id number] #### [facility] (DEFAULT) [address] [place] [address] Vit B12 Lvlon 06-24-2024 Vit B12 376 Normal 180-914 [facility] Comment on above: Performed By: #### 2 [id number] #### [facility] (DEFAULT) [address] [place] [id number] Outside [facility] 06-18-2024 Outside Records [id number]# [facility] Provider Orders [id number]# [facility] [id number]# [facility] 06-10-2024 Outside Records [id number]#1. [facility] 06-09-2024 Outside Records [id number]#1 .00[facility] - Other Lab [facility] - Other Lab Results [id number]#1 .00[facility] Outside [facility] 06-04-2024 Outside Records [id number]#1 .00[facility] Rad - Other Radiology Report on 06-04-2024 Rad - Other Radiology Report [id number]#1 .00[facility] - Other Radiology Report [id number]#1 .00[facility] Outside [facility] 05-29-2024 Outside Records [id number]#1 .00[facility] - Other Lab [facility] - Other Lab Results [id number]#1 .00[facility] Provider [facility] 05-27-2024 Provider Orders [id number]#1 .00[facility] Provider Orders [id number]#[address] [place] [address] Consultation/Specialist Note on 04-10-2024 Consultation/Specia list Note [id number]#1. [address] [place] [address] Coding Summaryon 04-08-2024 Coding Summary HTMLBase 64 GvjnahwvZHj4uFb+PGhlY WQ+HO8MNSCqH33zvUKayC 4fJ8CYNXvGHqouKKGQRAk VZlJeloUgRA8hwJCgYCKu IC8+US2lQQUaDwlvkUUhv 4S2fSC7T47wnr0fRGijuK A0JPQbGcRxijiwq1bxiRo 6IDcuNmluOyBt ONTquM35JOJ9lJ86Ds08p BPszYLvp8lpvWb6SxMvGJ MtXEJ4xTcyTAvjt5ZjKHH eI75szMMcq7Y6 IXCxbZndyTIsMkGbmQB3p F5qAUpxlzxgq8zlgfzhMn z3ks93vORht5Y2uYR3G0L vgvC5WVBcbPZb YdrinFORsS6kogjiw1zln umsZeTgDQMkELc1WGe7OU EqmBojDqJaMW22NJK8SOZ qgrHvH6FyLTGz lOqvFwX2s7N1Vs2MA9YEU qscS9BYMBOCCBwudJW+PC 40sb34P1JqBzreDpt7GCO oKBC3lSA1lE8t FGXlKFjhr4X6fMX7O4Uec cOznt1gh0jmRMHhZTqqG9 4yxRJfs0M8ZMYwsRI7MIY wtVeoRoCnxR89 Oyc+VYPwbWqcv5GrOkxvq 0unc6wsmEd0NqlrZOJxif RllQrvFSY7p1PlTy8lFSZ heYN8eRX5lB6m WkYkBsP5NZbyA877FiTkp PXtPiwiR25yB5YsdYN+PH JkGfy4OSFkiEpjTD4vH6V hZGRpbmctbGVm uNgmCS9sAHRtxxesPVOjg C3mLFYkD1g7HzHfEmE4NK woQ7UiQDXfromhZz63wI5 fXmXiIjG1QHhp B1VertK8ABXntPYtEHbpG PL9S40lu5K5ICVuNZQwHC Y0xMR3mQ0rnEpndsbmbLB mdDsgdmVydGlj YAyfJXhuT071QLVkxFxaS kNvZGluZyBEYXRlOiAgMT IvMDMvMjAyNDwvdGQ+PHR sTDJ4kMaoFFTq lJQdTPznIv0emValaRtpM D2sJIWwoglcUQPcmX5iXU MwkAFnvGzwQL3lGAIisnn rh610YtNiXGV6 IRFpqKLxP3OfjD3oAzQkD NXgCTVoC8MyqDMpRUclY5 27AXgcVjR5RRZpwjJiN0N sLWFsaWduOiB0 n9O8Xr8Jy7NfisyiN2Zza ARbDnMfFfinLKh2S4WgHu wvdHI+XA39NUVbJB08PHh 6MQM4mGdhXRvo MUBiG9MprE7zZqFdFPWxJ GRkOyc+PHRhYmxlIHdpZH RoPScxMDAlJyBzdHlsZT0 fPv6uRCHoTBXw rMauvBBrQvAla5njJXVfT TlaPS2sgIigB8VbzCO5RQ Idq8l6Aw75L69oD2EegQN +QOTkiPU8vSS4 oY1pYwPyDzQ4FItaO898E zOcqKVsUcgnj6tmp1coxR t7DrH9DSMiahRgqKbuPPW 0z0WxSh46B67g IHdpZHRoPSIxNSUiIHZhb Cgidw8ghW8jBf4+PGNvbC X7mNF2kH7sEkVuXkQ9SUy uN164RqCobLIk Shfhm1fer8usuCk7XpAvA HPpfqDhoNwhAUW7i0QiOx 83F8PudWoaq5IyLgq0on9 9mCCrb9Z2eWK4 W3GzBJDdkblpqULmhXqfL C6iZUZzczzwLUIyeC0sRJ PlY4s8LfOpMpN3ESnqW9H pcaJ9BJLjyQCp RMPvuQGYsM9hkgeop7bpr hfkWuUbJHScSDp6LTo0SN TqrWmdXtWcLVN7HeJ7WGA 6mAYjsL0diGbt dniisY2vSod+MIZ0eLFjj VCTDX1cFmgulJU+PHRkIH P1mPmtXYahXCAxfP4bQTJ tK9o9UkGsJyQ8 BPnoK8NbjxV3TUHklBBuL VSelYTPaB4eimfug1evao tpKsEcEKDeKXc9IQx3FJZ saWduOiBsZWZ0 OmT8BDD3tFZwzX1ucYvbu ynaiC0zHea+QmlydGggRG V0BIu3E3VpWlf1OJXlgLs hDC8uyDJmAYcx Ts5xiEncrXjdXZ7xSDZct swng484TePyg8xjPUAxyM WcROdfSIK7T32te9S5UHY lTFZrRWV0nEN8 gP3wyNfhmtwvtBTfyFqrg wMsbDalMPyrKMlhO923WE CzeIpmFoReEEf0F6UgArv 6HINloXxwJA8k sADcBYghPk0gqUuekYtaY W5nMVDsujotw906EvIox2 whWSIvvGUrOUwyTGP5P81 sd1A4ZJExYVFk YVZ1vPP5wC3bpAbwhfekf GVmdDsgdmVydGljYWwtYW kdR287UBKnfSgcThUrwSs 3P6SoZtg5MTUa bPukGI0xwPQgLYbyVl1kg YbkaUgpVZ7zVFIfcogjk6 24AuSpt9gaDEMvbZOlFGp eNZX7O80fu3L2 QAPbUZBeAHJ4aAO7sJ9zo GlnbjogbGVmdDsgdmVydG guCInqLEzrF865EYLcnWh nPlBhdGllbnQg GYakQRu5M2PlZmutsUN+P P79NLMkZN32eDTzyGBzp6 twhLk3IdBqQGLwNOP5lOg lMUqvd2SzXBMy D41voIUsf5T7CHLynYxci INhZwAyjJM3vW9qKXgppo mzm5fmxpkhYhhar5xpxt0 7kQ13I45kSBjm ZHRoPSIzMCUiIHZhbGlnb l9xyW8rPx5+AFNmtDG4gJ E1tG2iITEtDlO2XYygC50 9InRvcCIvPjxj t5aed2nihZr5GlY2QGCow vVtqWhdVBZ0q7GfDp10E0 9sIHdpZHRoPSIyMCUiIHZ uqWypqk7pxW0a Ii8+TIXfdFU4xIA2fV1vI uCfVpA5BBohO459OcShyA ChDjwdU35dA2WkbNN+PHR zAgl0CEWqdAqy ZH4ybVHuPRvhPw0mDGT1C xKiUqBnRZobJ8IzQOGbit vghwbyyFN7UFDeBYJjwT4 9Tl7qdCatGQTu sDDUnP5rqjjai9usfmrtT aFlRUHfRXp7SAo2WNDgeN vdXjClMBC2WiH8ZAT4vNV heS7lxYeihjwn xW5oA8SdTNKsqtpqJh05k X4xEzTaXbC0ZWhvQhs+U0 9XRVJTLCBXSUxMSUFNIEZ UPY7GALY2E9Tx Ucm4GSKgmAklYX3orDBvY SdeIk3vaNgoiRmsGR7rBD TsttjvVXDquZ8kBLLkwDW liYatXI0dJAIi lwdjw904UjEnXLZ7FWTur FGqB7QdsK9gRkNaNGOuIH BbD9HtbFMhDDmyH202ZIt fUrQ7KYCrdxQl G8ZpZUTxrYcoVwI2z1X4L e7tQL6vBS2mPWG2AI76JW 04sSLdp7Y5gUX2Z3LsXCG pbmctcmlnaHQ6 UZMdYRYpeD70oALoNCthQ f6gy5U6w006MDOvBEHbwI 36Su7ovWllTAConWGBdG7 apkxga9nefkde TkViLFPlJEq4NBs2SHStw VmmOpPcIAF1AnH6DXR6qU RkxL7gjKrhzzbooU5vNhk +NzYgWWVhcnM8 L5WnAwc3RZXsaCiaFJ9kj JVlGCsnJf4vrZybxTzkEG 6dAPXoibmfWUMewN4mQCW frMCcwUqwWA5j SGHchlgul417PzLmFRV4G VLqzHLpL6SarI3xKwSbFV IwKWGiF9HzaQIgBHfvH32 8XWkvMkX5IXGy jtVnP0QwJENwpYmvPbX5j 5Z7Rt5FDIgZRM83EP34cP Gcs1W5zHF9Q8EhJCScyyg xolbkgYU3UFQx HPBslE50mWSqNZrnFq7yj 9R7d235ODJiXSBwgN39Bm 0poLhkHUYesZAMfB1iosr wo7enoajzHxHf KMKuEQb9CAs8SVDplTssF oPyFMY2SzR6LHL4qBVobI 7aeWbmgkfehF6bJbr+T1A 9X9JqRjpltBQ+ AQ87JZGyQO89cNTvgYAsf 9icoPq1WkQdQRZfUXI4tK kuXCbzl3UeQFFpN19arQW df5O1SODxhKrf tOKvRnQmcLQ6dY2mORqlq myjc4tmrlniBktxf5cmru 24uP42G57qGBxdUQBqCJD zMCUiIHZhbGln mg2irU7pGk3+KHLhgTP6b IV4dJ8hOrMqWuG6ITaoU9 08SeFnkRTbUpkfu7epa5v laVn2QlTmZVRn ogHmzKsiJAW8f4OeJi31U 29sIHdpZHRoPSIyMCUiIH BgnMcwxc8zcH4dEf0+PC9 tu2acfl85fN96 dHI+LNFeWFJ4fAbiLHmoP UBzbR3mUOzoFpT4OCEiYm KcjW73nOKqBXhiCm1vgLq vrUumSB5kZHIw tfukn767ThQjr5sxCAAiq LJeFOonVFB4E62bs4A8PE LtYQXjXHJ3pEP8gJ4heYx nbjogbGVmdDsg bsGfaRepUGarSInrR780Q IMmjHgjQyKvtDHnW9olyu LQMV4cVrmnzKR+PHRkIHN 0eWxlPSdwYWRk dY7kWIXcG6a0NpOgBhS8W ZylG2QcpnY5IPIloEJnUC MdaQKRrY3mnqpze3wkoyu gIzAwMDAwMDt0 UTu3UCNhxQinOkDoGSV3Q yP4AFT5gGFgnG6eiSpymn tvnY4aUdw+RklOOjwvdGQ +XUXsGYC1fXsn VYlyPMBemU2lFFVyR7z6J nGeWwI7RNwkC5PogqI0VN GpzOQaXPMevJPLaW2ztsv ap5uwlmdxImXw ZSUdXNo8YIk0OESvaHmsU iEjHUB3JhU7MHO9rKSezZ 5dkHyiyqbyoH2eHhm+TVJ OOjwvdGQ+PHRk BKT4sLfvCSkbPSLscR4nK WIuB6d0WmTqDqL7KQssR9 MxjlE2ERMedIKeANYddVV JcD3rhilaf7ub unkgOoLfUNMmJFc8SNx5B HSmfZkiQyAtVHC0RlN8TA R7wQPoeE7qkMcumcfmxV0 wOyc+EEG0KYU7 XP80HO14M5QsYubhkYJep +PHRhYmxlIHdpZHRoPS cbQUEoVfXlcSylQZ5zQa8 yZGVyLWNvbGxh cHN (more content not included)... Normal [facility] 04-07-2024 eGFR AA >60 Invalid Interpretation Code [facility] Comment on above: Performed By: #### 1 [id number] ####[facility] (DEFAULT)[address] [place] [address] 03703 eGFR Non AA >60 Invalid Interpretation Code [facility] Comment on above: Performed By: #### 1 [id number] ####[facility] (DEFAULT)[address] [place] [address] 27526 Anion gap [Moles/Vol] 10.5 mmol/L Normal 5.0-19.0 [facility] Comment on above: Performed By: #### 1 [id number] ####[facility] (DEFAULT)[address] [place] [address] 73402 Calcium [Mass/Vol] 8.8 mg/dL Low 8.9-10.3 [facility] Comment on above: Performed By: #### 1 [id number] ####[facility] (DEFAULT)[address] [place] [address] 91451 Chloride [Moles/Vol] 103 mmol/L Normal 101-111 [facility] Comment on above: Performed By: #### 1 [id number] ####[facility] (DEFAULT)[address] [place] [address] 96460 CO2 [Moles/Vol] 24 mmol/L Normal 21-32 [facility] Comment on above: Performed By: #### 1 [id number] ####[facility] (DEFAULT)[address] [place] [address] 17644 Creatinine [Mass/Vol] 1.17 mg/dL Normal 0.90-1.30 [facility] Comment on above: Performed By: #### 1 [id number] ####[facility] (DEFAULT)[address] [place] [address] 33404 Glucose [Mass/Vol] 175.0 mg/dL High 74.0-118.0 [facility] Comment on above: Performed By: #### 1 [id number] ####[facility] (DEFAULT)[address] [place] [address] 11207 Osmolality 277 mOsm/L Invalid Interpretation Code [facility] Comment on above: Performed By: #### 1 [id number] ####[facility] (DEFAULT)[address] [place] [address] 59561 Potassium [Moles/Vol] 4.5 mmol/L Normal 3.6-5.1 [facility] Comment on above: Performed By: #### 1 [id number] ####[facility] (DEFAULT)[address] [place] [address] 66305 Sodium [Moles/Vol] 133.0 mmol/L Low 136.0-144.0 [facility] Comment on above: Performed By: #### 1 [id number] ####[facility] (DEFAULT)[address] [place] [address] 66265 Urea nitrogen [Mass/Vol] 30 mg/dL High 8-26 [facility] Comment on above: Performed By: #### 1 [id number] ####[facility] (DEFAULT)[address] [place] [address] 39124 Urea nitrogen/Creatinine [Mass ratio] 25.6 mg/mg High 4.6-16.2 [facility] Comment on above: Performed By: #### 1 [id number] ####[facility] (DEFAULT)[address] [place] [address] 14267 XR ankle RT min 3V*on 2023 XR ankle RT min 3V* [facility] [address] [place] [address] XRay Report Signed Patient: Titus Vera MR#: [id number] 1487 : 1950 Acct:[id number] Age/Sex: 74 / M ADM Date: 03/28/24 Loc: [facility] Room: Type: [facility] Attending Dr: Hawk Espinosa DO Copies to: Hawk Espinosa DO Ordering Provider: Hawk Espinosa DO Date of Service: 03/28/24 XR/XR ankle RT min 3V*: M25.571 - Pain in right ankle and joints of right foot 3 views right ankle ankle plain film COMPARISON: None HISTORY: Right ankle pain posteriorly ACUTE FINDINGS: None DEGENERATIVE CHANGE: Inferior calcaneal spurring. SOFT TISSUE FINDINGS: Potential focal thickening of the Achilles tendon. Edematous changes anterior to the Achilles tendon suspected. JOINT EFFUSION: None POSTOP CHANGES: None BONE MINERALIZATION: Adequate XR/XR ankle RT min 3V* IMPRESSION: Concern for inflammatory changes or partial tear of the Achilles tendon. Correlate clinically. May consider further assessment with MRI of the right knee. Impression dictated by: Jude Zheng M.D.03/28/2024 1:44 PM Dictation Location: [place] [address] Transcribed By: [facility] 03/28/24 1344 Dictated By: Jude Zheng DO 03/28/24 1342 Signed By: 03/28/24 1344 Normal [facility] Consultation/Specialist Note on 02-11-2024 Consultation/Specia list Note [id number]#1. 00OTGTIFF [facility] Coding Summaryon 12-17-2023 Coding Summary HTMLBase 64 SozfobzlPMv1hAj+PGhlY WQ+QZ0EYEPaN53xzDJklD 6xY4RFWXvWQhsqIGTTBGa IRfYjwvWuMW5ufFJxHPSh IC8+QS3hAXKmNebzyIEgc 9H9gWA3T47rkr5dGKdvhL M7GQYlOnQudjuun9iffQc 6IDcuNmluOyBt JTHgxM76SDJ6zW27Di76k MAvtPCfm0fouEy2SpGaXR PfALV6hPoyIXtjh4CqVYN wT74biMXbh4L8 TZMzzIdkjULeYmXktDO1f R8oAJotxwavw1djcfreBp d9cn81uHTyi8X1vRZ3W1L nnxH3VQGufKSn YxoadJOGpE6jauwrf7xkh iduFkEvFCQpVTk5ROe3OE TzlUpgMtVzBM37CUR5EYI amsNxL6PhQREr bToeLmU3p2G6Mf1XK6MXZ zbtX4TUIVLRCUsluBA+PC 28pw94W7XzAgpzOep2ZDU pONQ5cXP0tF8o HVOdGVhzy6X2uKH7F0Apb hCcqq6ys8fnDCPrEJgcA1 9srTQaj5T9KZHkbOJ3VSR sbSryRcRuiX33 Oyc+SKScoAbio8MhTocyu 5zre1ozxVi0RhjhXKKxjq JvuTslRQP2y3ZiLq3qATL qlUB3aOL1eV3v QtXaJwJ4MHxcC612BxAhq TFlSqbaO35hQ6IsuIV+PH IuKjf3BBRtnCmmCO5kR2K hZGRpbmctbGVm uQzyRZ9hSLEohtpfEJUen S5sRMWyY8i7DoLcHiQ8ZY biU1FdPAGoepmxEt75vC4 fOhIxCkT3FDpm Y9XjonH9MRRjnUWmBSmqM YS7S27tg2B4MHBmRMQlKF I9uFI1bC7ugYlrtugxtXS mdDsgdmVydGlj ZYluSVuuL245RELnhYywL kNvZGluZyBEYXRlOiAgMD gvMTIvMjAyNDwvdGQ+PHR gTKW1jNvvPAKg aQQkEYdqWq7rqFeizVooO Z9aSEQgixpvQTFmdL4hHB PkmTCxyUlpQO8jQCIwwwp ve806WfYbRGK9 YRRelHMdA7QnuV2pIyIuY NZhLOSzM1YoqOBoNWnsI8 13ZUkbFyV3ZLWqiaXrP2Y sLWFsaWduOiB0 f3K5Rq1Jh2AyeancO5Maw MFbZzGdOdlzXGk6E9LuUd wvdHI+HW97QUObEU68FZh 7EIH0yLqkDGmn DCSaV5ClrY2yVzJzUKRfM GRkOyc+PHRhYmxlIHdpZH RoPScxMDAlJyBzdHlsZT0 hHp1dFQWuPRGm jKlsxEHiKyXti9fqANEnM IxkCP3mpFsnM7SlpYC7RT Zzx1e9Oz88Q76dQ6YztFB +KWPhjUQ8aSC3 cL6dNwJsXcY7SBdpS867P lQpvUBlQxovo1bki1kqcO e9GdE5YZNmucVjeAcpOZB 3x8IrAw82Z05q IHdpZHRoPSIxNSUiIHZhb Asdbl4pjQ2zVk0+PGNvbC T4gGK3uU8mXhPdGnX5HDv mZ059GyPzfBZb Pvpar9aez0psqIc0WhOuO JDrqeRubAorYQV1n9OjXa 18L8MfqRmiy6LgHja3pt5 0rAUum0C1bFF9 R1CwFSGnufloeSBwgHlyF Y5pARSaficaNCMstX4nGH OsD8o1VcXcKoX3AXfdS3T sbeE2OTIrsBLk YTRurJCGeQ9jvxfwv0ixh nqvXtXzFPEbCHc7IXt4KP TbpYslMhEkXGK5GrU1PMR 6fIRauH3idDru djzebN9aMvb+XSI6dJPdh LZDGH2hSqxtwKI+PHRkIH V1sKkeCXsrYYMukN8eKMX uZ7i5ZgQrEdK2 DCduS7MppuD9FOZnuTNaV YBkeVRDfE5cqsclq3ihiy fsOpCaUQMfKFo7DFo7VDG saWduOiBsZWZ0 GnS4DCP1iWNvtX3dsWfqg tghpQ7dLdg+QmlydGggRG O5OLl4P8EpOqu7HXIvhZy iZN7fyWQhQNnf Fn8fgMgbwHcfUI3qYAXdy oihh221NcKqk8poYITgfP HjBVwzBPX3V20yf7U6YZB kBFYmMPP8zVF1 kO3ajLbhkkgdpKRanVcjh oWjiIhkNPmfLKgiX706BB PxnOqrNuIdHGm3B1AiCdo 6XLIsyJtdTG6o eLDtVJdnJm2gtPyuiEtfI P8lBNSfcpdum584YmPdy8 xuNTWjbVZyKCrxAYR0W37 pe5N4KSRpMRZx YVW2nNS7gD5dqTpdxubca GVmdDsgdmVydGljYWwtYW slL596VHTbpThdLrDkaLg 8Q3LjUwx6XZXv oRxeHE0kuECfMJusFt5zq MdunYkpYY7iAADyzqjaa4 75PcGic7nrCZDlgHDcAVk jKKT4G21oo1N0 YJNkFMQlSVQ2zPD2iA4pk GlnbjogbGVmdDsgdmVydG blUYpjJYkcW565CKZyfLm nPlBhdGllbnQg STzjFBz7W4PvSsprmTS+P U23ZHCgKX42aBKqbWGup0 dnvIw9SsGeCTLvHDI9tDc fFQjlh4PsJFXy K87fkPZqv4T9DBLjyYidr NYnYeOgeYG9dH9lUZlpod jzz5gdsbflEyksf7usmc2 3qK86P48gAGfa ZHRoPSIzMCUiIHZhbGlnb t6fqT8cEq6+VHZkqCM6eY V8zU5cLKTyKuL5JQnfY78 9InRvcCIvPjxj t7pxr0lsfLc9GfE7NAGgt bDdnVffDXZ0c3OvHt15J7 9sIHdpZHRoPSIyMCUiIHZ nmMlaow1qsS7j Ii8+EKFfwXN2tZV6wY2bQ mKlNuL5ERbsX587XnYivG BfVdaeB98hA4KraSI+PHR kOoq5PGFmzXef TI7rkXPsYJzsHa1sNDM9Q bBjEgLhYQrzJ8FtUHPxuf rxilldlTG9TLXsSWYejE5 4Ao7uzOfvKMDe eTAYgZ0qgxrdn4iswdzyJ iNtZCJuZRj4LUn5QRYqxW tyJjIsGFL1QoD7PZW0fNQ irZ1xmHrlcdeb bV0mQ7FzDATeazryKz01s K0aRuZnLoM3TSvvMox+U0 9XRVJTLCBXSUxMSUFNIEZ YOK4KQOW3I7Rd Qrk6YECxkVjgZS0dnGDhH BddCu4jlJwxuOkaPP3rUB IvnfwyJOXieI6fEVUozMN njWseCN3nMUZp orpim768RlRcVRW4AGUta QHuI1HalQ5pCvPwNXVfWE QjZ0GrwREfBQelX637JHy vWgD8JPHqkjXs P0JmLHJxhOorSoD6v0N1P x9sDM4eXA1kARP7UY44QZ 15pQJfe4C7xGS6F2TwBXZ pbmctcmlnaHQ6 LVPsKMVlgH64sXPmZJqvM i8cs6R2n001DIXbWCKjlE 87Zj0vpDgdUUNnxKOGnH5 qtnnuc9kbkeaj HgXlXCHcAAv8VVx8ZLOgn OwlSwVdKTO1NpQ8FHR3pN KaaJ0dxPuqvmwieX3lUoa +NzUgWWVhcnM8 V9UdXbl1ORBqjOytMD9sm FNmBIxxXt6bkMdcjNcaRO 4lNOXjatxfOXAlcR4nQKH xuKVjcFksUL1s VRZkopkez065SpGeVQW7P VZchPOsL6WhzQ5rZuTuQW IrSEJbD9XskIArBUyzU16 8TDaiDrB7XDZr wdCuK8RxSINnfDgbYiY7c 8W4Ld8PJIvSRY81EA26jZ Cvl4U7hRF1F9PnCYLpphn hviibhEO5RIZf YZFupJ11qGSjBBymNv4ow 4X3e958NCZtJTTvhU96Eo 2okLblZSTryTERcY4qysm iy1wiyuwcWwWd DGKpLUw1VPv9TIVhaExhB nDlJFS7KuP5HNU7pXVafU 2hoZlaxoadwT3vPiv+T1A 9S0OjWwxbjDU+ QN11ETYpQC64fEQuvHKmk 4lorMw1OdGtIRMzHNV9uA dhTPsox9BfEBQxN12tvBC mn5A6CZZdhNwl hNSaHbAwsIP9oI3sUWtvx pskp2vpxugyRmunl3zqah 93eW55U89gQJhbTUJcEHQ zMCUiIHZhbGln dt8hlV2wYi1+RZEnjKU0q NF0dE6cBrAsMnR6DFakR0 35BkSuaEVmJqdga6gtc9q xtOe5BpFkTNVr xeSrrNtvUSI7v8SbHi46L 29sIHdpZHRoPSIyMCUiIH UezIkukn5faU1kVb4+PC9 qi5obgo43yZ53 dHI+GREnLZE6zAgfCElkV SVebU7kPZkwTiQ8ZUXyJk EeaZ68mHFwHDbzKl9taJo nqXprDN9zGJCt hhckl724LrYbr7mdFTHzn AWuJEtdJRS4P58ff8D9OW HuNKWcZBA9bXK8zD0dsVk nbjogbGVmdDsg ifLdoPqnJFtxMPmoO466W PIfmJwcTpKueIMsH0sekc HNPR6pLipaoJU+PHRkIHN 0eWxlPSdwYWRk aB0nZRRkX8g6VlAfCpO7K FncT0SehpG1HMYpqOFxGG HmpKSPqQ6oirwgp7mjzfx gIzAwMDAwMDt0 MFa1CJLdmXdfLbSwKCL4J iQ5RSW4fDGwqD8onZrpww vsgA8iXla+RklOOjwvdGQ +LLMuQUU3tOaq JIsrTNTueN7jQPRsP9x7R uMeDkJ6FGtdS4HsqjA8VH DavQAkNBZqmWFWsB5feeo kh6hiqlhzOaNe GZBjSEc4SXa1RVHopIomJ xNuSAW8HpL4KAK8mXXxkV 3zmKnawevjzI6vFmm+TVJ OOjwvdGQ+PHRk NHZ9yYxzRTnhCTMtpD1nL UHeI6y6XpEoHwV2SRukP1 WrzqF2TUHriLSiAMEavUT ZjB5bcgoek4ed qefnAySjKSRkBYw2OWx1C DPnjQdeLxWuEXP3KrJ0AX U1gABbeW2sxZmfvgbpbJ5 wOyc+ULG7SOL6 PO61TQ41D5ZhMssuwPJkt +PHRhYmxlIHdpZHRoPS arMQZbMiNaeYvlBA6oMz4 yZGVyLWNvbGxh cHN (more content not included)... Normal [facility] Consultation/Specialist Note on 12-13-2023 Consultation/Specia list Note [id number]#1 .00OTGTIFF [facility] Consultation/Specialist Note on 11-29-2023 Consultation/Specia list Note [id number]#1 .00OTGTIFF [facility] PSA Diagnosticon 11-29-2023 PSA Diagnostic 2.54 ng/mL Normal 0.00-4.00 [facility] Comment on above: Result Comment: [employer] Clinical System (Chemiluminescence) Values obtained with different assay methods or kits cannot be used interchangeably. Results cannot be interpreted as absolute evidence of the presence or absence of malignant disease. Performed By: #### [id number] ####[facility] ([facility])[address] [place] [address] Provider Orderson 11-29-2023 Provider Orders [id number] #1.00OTGTIFF Normal [facility] Coding Summaryon 10-23-2023 Coding Summary HTMLBase 64 AsazeuhkGNc7cGb+PGhlY WQ+CU9GDQBxO80lnMIdqB 6bE7LTSSnJTvovIAWZYRx ENxShdjXaWB7vsHJvGSIz IC8+RI0gRTZyIkxrcCObz 5P6xQN3Q50qnw9kMYtrwJ O0GURrYrSerqrbs0uuvSj 6IDcuNmluOyBt GOOzlU52TUY8vG18Sn92b ZCduTAhw6fjgGb9SeEkCH JaCUQ5zLgxLEkya3GbFKO kO32wiSHbr3D7 FSPqnWzudWOkKpWwqVE3p I1nVCnrwcawf1wcwcyqIe b0yo52uIGdn2G8qUA4Z1E nkkB1QLXylSYq YkidlGRHvT6soolam0jtc nkwUaLqLUIpGZh2UWx7QB DumKlyPfJuMZ55KAQ4ZAZ xeuKiX6LnUAOy nTshAyV1o2D4Hp8OH3SPC aygW1AJROYIVDftkPO+PC 99dd95G1FwNppoEtv2ZCZ kGJV4vBW3xX0b HDMpLUpvc0H2mEU6Q9Bny pLlcw1zo3vhXJQqCKwjR4 4cbOCex9H7KZZptGI4RJY giCvnTvVqwG77 Oyc+WNPuxTsdv9NuRsrcz 0uob8zyqVb8HdhyRZElxm ZsnKjvEDN6s4JtFe0gKKY bmIF5cFO6sD7n HzTgTyQ5DSjeM437IsMyj NTgJfxpA32pR7GxkBG+PH RtZfy0HLXqpMkwPD7bW7Y hZGRpbmctbGVm yJhcDY6dPOXlxysrPYXiz X9uRSNoL7y1XvKiSdS8CF qyT5HeZGDldwlsVk71hJ3 qToOwWwA7XHtt G1JkyaS3TXWffXMnNLqaL JI0B14am3E4CETxYVZjNX G0bPZ5gK1vvKtnflecnDM mdDsgdmVydGlj HVbtZVdtK197ENWujPjpB kNvZGluZyBEYXRlOiAgMD YvMTgvMjAyNDwvdGQ+PHR jEPY9jIxmVROn sIQpAZfgDz0ogNarzJdiX A7tNGWnhhnbQMXhhC5bDS IuxGLpkTtjKY8cDBFsboq hq997WtZiAWM5 EWGvrMKvY9VttO0vUlKzF UFcPAGdL6NugVJuCAseS8 53LXffAtZ4TXYjmaUyF4Y sLWFsaWduOiB0 t4Z7Gl5Df7MrszarY1Shg NJiPbHjUrtaGDh0W5TdZd wvdHI+UQ99YETpDP50BRz 6VWI2lJbnBIwl HIIqL3LueD9jRkZcJOTiG GRkOyc+PHRhYmxlIHdpZH RoPScxMDAlJyBzdHlsZT0 xGc6dQHPxTAAg kIblwKWuFwIbl7unQPJeH ZilQN0inIfnW3WjzRA8GK Hug5y2Er75P55pU0JjcJM +HTLmuYX2bIK5 uD8yZcWaWhE9XObeB688M ySfkQNcZvbih1rvg9lvkC n0ShF9EVWcryKvgBtyBLO 2k3GpBq45Z46i IHdpZHRoPSIxNSUiIHZhb Uoinz8ktV9fEl2+PGNvbC J7uWD9gJ9iLyIxPaJ5UXw zP478McQqnBEf Tncgk8etz2vzlDw4HfVjN RIqkpTvvTpdJAC6q6OxDa 48B3LgxDfty9PoBlf2xw2 6fOBhc2P4uWN0 J8QcHXDsewwznETgnOtqD I9zEMUlzvxeTFNsqJ4aET CfB7o7FsYnVtE5JNwpM5W wzdZ4QUEkyYBj CVJymETMgX5mwquou2jbk hfxXjPeVCCqVMp8OYe2KC LuoKerPgMxRKN4CzS6MAJ 1uCNhhJ5iwZqg roynwU9yWkt+PYQ4vBRgw MEMAB3eCxfgaXO+PHRkIH Z9oRefJWbjMXDrjF1uOPK rY5y6VqCtNoC4 TKnzO1FtlvI7KAOdiJCoU FRdhMTOgF5rdbgkx4qtbu nqVaIaJXRjODk6QVs0XVM saWduOiBsZWZ0 QfK3OOP3vRFoaZ7fsXkcm uwccJ0yThf+QmlydGggRG Q6LUi3V9CaFnv2PGAklXj gSM2ijKDpCAzm Sj5cnIpomHtgXS0nWJBqy joed431ScErk4haTPCmdU ScZUqxKGB0L92dn1T1FCV hZNNsCIU3aXN3 rK1bmOgdwavsjEVxqZxil cWtuIpwRMcwENpnI882CQ EepCqbDxIkBYt6U2SeSrn 3TRWfzJroZT2s gNKjIRveLj8jeEblqIleQ Y3iGWRgtdahr680VmSkq3 loAXVrbWXyMUayNIW6V95 hq9L5IRFiXJMh MER7wNQ0lH0axXdhhzmll GVmdDsgdmVydGljYWwtYW rpN214LCRcdHyuOlOvlZl 2M7VsWws4GFUg kRjwVZ8rnHUuNTteDk4ta RsmsKtpDU0gEUZuumqus0 86SeXmk7jtACRnfCCeCIe rYRC2C72mx6O9 DTDkCUQiLTC6bHL1gO1bm GlnbjogbGVmdDsgdmVydG fkHTmvKFdzO194DVSowTp nPlBhdGllbnQg SUlpBFw6Y2VlHefduUX+P F70CLCiQX11gWTkkTKyn8 xfuDd2PsYhEMDyESD5uVz pWOsvg6QuAWDn X83blGRdb8F0DLRkjBacv SAsJbYvjFE1bB0cXAuvzn ksu4seemrgIikxl0tmuo1 2nG47N17lUAno ZHRoPSIzMCUiIHZhbGlnb u5ffF2uAx8+VSBjfXC6kE L3iO8wNCYkFuX9GPxmD30 9InRvcCIvPjxj g3mef4spdGy0YyD3FLTsv uBayVhoFGP0v1QbUb15T1 9sIHdpZHRoPSIyMCUiIHZ ytMdnvk2omC9h Ii8+JAAxcGR5nTR1aQ6xG fJzTqI0LFeeW690LbGdbM YxPdudA98oZ3TrnQA+PHR cEox9MIDvnEnv VI6vnHLpBMtvBl0sXXU9U sLrBcFjAQnnI2ZiDPKvdm qrhpfjzGW6UEOuSNFrnO5 9Zt0whGyzNWMk xGZSrO9lvukdt2cbquefS mWzKZYjSAd4WAh2JSMmsB roZrWcLBM0CeK7QRD4uZL gmR6fsOgwnmxv lW1uP5VxIVSmvfvnEu70d D2eUuJpZoJ5CFmpDch+U0 9XRVJTLCBXSUxMSUFNIEZ KPD1JXHV6A7Tx Elo7GAJyeUwuKP3xvUTeY KlvHe0kjEadkJsiJG9cWC LzthguKPCigE7pEDBukDD ezTvtZN5lDNSv ocfts264HjKfBYY4XUCes YRnY9PgqJ8xSlXqSDAtUD IoA9QbfICwXWbbJ093THc gCeG6OXLleqVq G0WrMHGuuKaeKtQ7x0H0X m3yMS6dIT2pJWF4TA25DM 99yMKnq9W9uHB2U3YoOZH pbmctcmlnaHQ6 XELgMSCumQ79tRSzWUdqV j6hk5V6f850TRTfNVZymY 93Bf9hyXzzTGAggTIYoC1 kwioww3fvxyke UiCwRTZcQRm0KOr7CMTag HvkDyHbGZV6SyM4TWM9eY QidE3hwTpyezuybJ9jHhv +NzUgWWVhcnM8 R2DxMja3VRQpoZtiHZ4up VRaKGuvEp1yjMsbqUzaAV 6jCQHfwiosCJHivK7rCHO doALkoXdoOX7v BNYozbxko827FvJoYQC8Z ITlfCNcP7KrdM8xMvTvUZ YuHANeG5YvgEOxIKxhL26 7DKcjYhM8UGDc lyQdQ5IuDFJwiPoqTxC3g 5O1Rj2QMAsWYS76XJ55fM Yxb9V3iTW4P3MvSTGvlez nbzwdzFL5VPSg YULszF11cYYhOOllPx5px 6O3t850EQJuLBWryA45Km 0lgFpbRZGulZTKxP1cchi ho0seooylVvRe BWTeNDu5ZJy4VHLaaPpeQ nGlKIR2AaP7JYW7gISmbE 2xtDusrfwtfU0jQkx+T1A 9C4KdSkfnnLP+ BC24ZJThHE98fBBkuPTrx 4pepSy0WeEqQCXyPCI1eC wySMvjp0OyQNOpX24muDM lx9X4SOTixRgm bVAmKkExmRM2sH5hHQzhj jcyk3dmsvmtZrxcb2fwpl 01gK93U13zMWbgCAWiPQS zMCUiIHZhbGln pl7yhW9eNs8+BDLwsVO6h OW6kH5tWmOyRsN8LRqnA2 49WaYhrPZwGbxxm6ghe3y qsXb6ZaUuZHRy soJtwEdyCAD4t4QpDc59P 29sIHdpZHRoPSIyMCUiIH XtrEgmkf4ciD8nOs8+PC9 xs3eyns16iC67 dHI+FJZnCNV8bRtrVPvdB XNdwB6jYHnoBcK2VESoDf YrcW37bNZtCUwvMk4beYp epPdeBQ4gERCv suehj976JhAzm9gvLZLgm FAdPZspBFO8M37fl9S0VV UnAQHjTCY7zNG1kW0pxJn nbjogbGVmdDsg acVniWysHRyzELpaU708D RDtmTyfIwRppRSgK9yvbo ZEMI9jJpsfgJW+PHRkIHN 0eWxlPSdwYWRk yC4dFFPxD4z4WtKhLqN4J BqrM9JuabM3CNWcuBKyDR AhySTHvX5xoihjc1hmduz gIzAwMDAwMDt0 MZd2GZEwcTvxOhJzLAQ0H fA4YTX5uWXluT0luRyjkb tyuX4jHir+RklOOjwvdGQ +VMLhBDG6gGth TYhbXNZsfE8bMFSoW3z0I vIvSnT2BNobD0WeicM4ZA RixQQsCGWlrSFOyD9cjnz vd1kyzndxHmWd DWTzWTj5WNk8RGVjqTbbQ qViSVR2AkS1CCA6dOFipV 1raTlzzknylO2lElc+TVJ OOjwvdGQ+PHRk LLZ8vMscIQgoFUYqzM3pU SYzY8d1HqItRzG6TOxwU4 YoffY7TKYnsSNuNCIhhFZ WwK8vhoqsl4cf ujrtCjCpYNRcTWn7BNq9K STvoQxpEdPvVBF8IjF3FL E8pVDlrY6jkCcrrvlbeR4 wOyc+RPX0HPY9 WS91AD89L9NgGhgarEVno +PHRhYmxlIHdpZHRoPS krIOVmEtTgmFhbEU8aMe5 yZGVyLWNvbGxh cHN (more content not included)... Normal [facility] Standard 10-19-2023 eGFR Non AA >60 Invalid Interpretation Code [facility] Comment on above: Performed By: #### 1 [id number], [id number] ####[facility] (DEFAULT)[address] [place] [address] eGFR AA >60 Invalid Interpretation Code [facility] Comment on above: Performed By: #### 1 [id number], [id number] ####[facility] (DEFAULT)[address] [place] [address] Albumin [Mass/Vol] 3.9 g/dL Normal 3.5-5.0 [facility] Comment on above: Performed By: #### 1 [id number], [id number] ####[facility] (DEFAULT)[address] [place] [address] 00952 Albumin/Globulin [Mass ratio] 1.3 {ratio} Low 1.4-2.6 [facility] Comment on above: Performed By: #### 1 [id number], [id number] ####[facility] (DEFAULT)[address] [place] [address] 90118 Alk Phos 93 IU/L High 32-91 [facility] Comment on above: Performed By: #### 1 [id number], [id number] ####[facility] (DEFAULT)[address] [place] [address] 26042 ALT [Catalytic activity/Vol] 19.0 U/L Normal 17.0-63.0 [facility] Comment on above: Performed By: #### 1 [id number], [id number] ####[facility] (DEFAULT)[address] [place] [address] 63625 Anion gap [Moles/Vol] 11.5 mmol/L Normal 5.0-19.0 [facility] Comment on above: Performed By: #### 1 [id number], [id number] ####[facility] (DEFAULT)[address] [place] [address] 74769 AST [Catalytic activity/Vol] 29 U/L Normal 15-41 [facility] Comment on above: Performed By: #### 1 [id number], [id number] ####[facility] (DEFAULT)[address] [place] [address] 02290 Bili Total 0.7 mg/dL Normal 0.3-1.2 [facility] Comment on above: Performed By: #### 1 [id number], [id number] ####[facility] (DEFAULT)[address] [place] [address] 89549 Calcium [Mass/Vol] 9.0 mg/dL Normal 8.9-10.3 [facility] Comment on above: Performed By: #### 1 [id number], [id number] ####[facility] (DEFAULT)[address] [place] [address] 24074 Chloride [Moles/Vol] 105 mmol/L Normal 101-111 [facility] Comment on above: Performed By: #### 1 [id number], [id number] ####[facility] (DEFAULT)[address] [place] [address] 17846 CO2 [Moles/Vol] 23 mmol/L Normal 21-32 [facility] Comment on above: Performed By: #### 1 [id number], [id number] ####[facility] (DEFAULT)[address] [place] [address] 54965 Creatinine [Mass/Vol] 1.01 mg/dL Normal 0.90-1.30 [facility] Comment on above: Performed By: #### 1 [id number], [id number] ####[facility] (DEFAULT)[address] [place] [address] 13954 Globulin (S) [Mass/Vol] 3.0 g/dL Normal 1.5-4.3 [facility] Comment on above: Performed By: #### 1 [id number], [id number] ####[facility] (DEFAULT)[address] [place] [address] 18627 Glucose [Mass/Vol] 113.0 mg/dL Normal 74.0-118.0 [facility] Comment on above: Performed By: #### 1 [id number], [id number] ####[facility] (DEFAULT)[address] [place] [address] 87162 Osmolality 276 mOsm/L Invalid Interpretation Code [facility] Comment on above: Performed By: #### 1 [id number], [id number] ####[facility] (DEFAULT)[address] [place] [address] 98790 Potassium [Moles/Vol] 4.5 mmol/L Normal 3.6-5.1 [facility] Comment on above: Performed By: #### 1 [id number], [id number] ####[facility] (DEFAULT)[address] [place] [address] 41298 Protein [Mass/Vol] 6.9 g/dL Normal 6.5-8.1 [facility] Comment on above: Performed By: #### 1 [id number], [id number] ####[facility] (DEFAULT)[address] [place] [address] 49387 Sodium [Moles/Vol] 135.0 mmol/L Low 136.0-144.0 [facility] Comment on above: Performed By: #### 1 [id number], [id number] ####[facility] (DEFAULT)[address] [place] [address] 33747 Urea nitrogen [Mass/Vol] 27 mg/dL High 8-26 [facility] Comment on above: Performed By: #### 1 [id number], [id number] ####[facility] (DEFAULT)[address] [place] [address] 20882 Urea nitrogen/Creatinine [Mass ratio] 26.7 mg/mg High 4.6-16.2 [facility] Comment on above: Performed By: #### 1 [id number], [id number] ####[facility] (DEFAULT)[address] [place] [address] 06155 Lipid Panel Standardon 10-18 Cholesterol [Mass/Vol] 123.0 mg/dL Normal 66.0-200.0 [facility] Comment on above: Performed By: #### 1 [id number], [id number] ####[facility] (DEFAULT)[address] [place] [address] 68336 Cholesterol in HDL [Mass/Vol] 45 mg/dL Normal 40-71 [facility] Comment on above: Performed By: #### 1 [id number], [id number] ####[facility] (DEFAULT)[address] [place] [address] 62054 Cholesterol in LDL [Mass/Vol] 68 mg/dL Normal 1-100 [facility] Comment on above: Performed By: #### 1 [id number], [id number] ####[facility] (DEFAULT)[address] [place] [address] 23324 Cholesterol.total/C holesterol in HDL [Mass ratio] 2.7 {ratio} Normal 0.0-4.5 [facility] Comment on above: Performed By: #### 1 [id number], [id number] ####[facility] (DEFAULT)[address] [place] [address] 65338 Triglyceride [Mass/Vol] 51.0 mg/dL Normal 0.0-150.0 [facility] Comment on above: Performed By: #### 1 [id number], [id number] ####[facility] (DEFAULT)[address] [place] [address] 94618 VLDL. 10 mg/dL Normal 5-40 [facility] Comment on above: Performed By: #### 1 [id number], [id number] ####[facility] (DEFAULT)[address] [place] [address] 02534 Microalb/Creat Ratioon 10-18 U Creatinine 91.60 mg/dL Invalid Interpretation Code [facility] Comment on above: Performed By: #### 2 [id number] ####[facility] (DEFAULT)[address] [place] [address] U Micro Albumin 29.6 mcg/mL High 0.0-18.9 [facility] Comment on above: Performed By: #### 2 [id number] ####[facility] (DEFAULT)[address] [place] [address] U Micro/Creat 32 mcg/mg High 0-30 [facility] Comment on above: Performed By: #### 2 [id number] ####[facility] (DEFAULT)[address] [place] [address] Cult,Urineon 12-08-2021 Cult,Urine Specimen Description .BLADDER URINE FROM CYSTOSCOPY Culture SERRATIA MARCESCENS >[id number] CFU/ML Report Status FINAL 12/08/2021 SUSCEPTIBILITY Organism SERRATIA MARCESCENS Method LEVAR Aztreonam <=1 SUSCEPTIBLE Ceftriaxone <=1 SUSCEPTIBLE Ciprofloxacin <=0.25 SUSCEPTIBLE Gentamicin <=1 SUSCEPTIBLE Nitrofurantoin 256 RESISTANT Tobramycin <=1 SUSCEPTIBLE Trimethoprim/Sulfa <=20 SUSCEPTIBLE Susceptible [facility] Comment on above: Performed By: #### U RC #### [facility] [address] [place] [address] Flanging Machine Operator: Parish Miller MD [id number] [place] [address] Flanging Machine Operator: Rafael Rinaldi MD Culture, Urineon 12-08-2021 Bacteria identified Cx Nom (U) SERRATIA MARCESCENS >[id number] CFU/ML Abnormal [facility] Interpretation and review of laboratory results Abnormal [facility] Specimen Description .BLADDER URINE FROM CYSTOSCOPY [facility] POC Glucose Fingerstickon Glucose [Mass/Vol] 177 mg/dL High 75 - 110 mg/dL [facility] Interpretation and review of laboratory results Abnormal [facility] Glucose [Mass/Vol] 123 mg/dL High 75 - 110 mg/dL [facility] Interpretation and review of laboratory results Abnormal [facility] POC Glucose Fingerstickon Glucose [Mass/Vol] 169 mg/dL High 75 - 110 mg/dL [facility] Interpretation and review of laboratory results Abnormal [facility] Glucose [Mass/Vol] 131 mg/dL High 75 - 110 mg/dL [facility] Interpretation and review of laboratory results Abnormal [facility] Glucose [Mass/Vol] 160 mg/dL High 75 - 110 mg/dL [facility] Interpretation and review of laboratory results Abnormal [facility] Glucose [Mass/Vol] 156 mg/dL High 75 - 110 mg/dL [facility] Interpretation and review of laboratory results Abnormal [facility] SURGICAL PATHOLOGY REPORTon 12-07-2021 Surgical Pathology Report -- Diagnosis -- PROSTATE, TRANSURETHRAL RESECTION: -BENIGN PROSTATIC GLANDULAR AND STROMAL HYPERPLASIA. Regine Owen M.D. Electronically Signed Out 12/07/2021 Clinical Information Pre-op Diagnosis: BENIGN PROSTATIC HYPERPLASIA WITH LOWER URINARY TRACT SYMPTOMS, SYMPTOM DETAILS UNSPECIFIED Operative Findings: PROSTATE CHIPS Operation Performed: CYSTOSCOPY TRANSURETHRAL RESECTION PROSTATE, 3-WAY CATHETER PLACEMENT WITH IRRIGATION Source of Specimen A: PROSTATE CHIPS Gross Description TITUS VERA, PROSTATE CHIPS Rubbery gallagher fragments, 20 grams in aggregate. Portion 6cs. tm Microscopic Description Microscopic examination performed. SURGICAL PATHOLOGY CONSULTATION Patient Name: TITUS VERA [facility] Rec: [id number] Path Number: [id number] [facility] [employer] [facility] ANATOMIC PATHOLOGY [address] [place] [address]. [place], [place] [address] [facility] Microscopic Urinalysison - [facility] Epithelial Cells UA 0 TO 2 [facility] RBC, UA 50 TO 100 [facility] WBC, UA TOO NUMEROUS TO COUNT [facility] POC Glucose Fingerstickon Glucose [Mass/Vol] 200 mg/dL High 75 - 110 mg/dL [facility] Interpretation and review of laboratory results Abnormal [facility] Glucose [Mass/Vol] 204 mg/dL High 75 - 110 mg/dL [facility] Interpretation and review of laboratory results Abnormal [facility] Glucose [Mass/Vol] 185 mg/dL High 75 - 110 mg/dL [facility] Interpretation and review of laboratory results Abnormal [facility] Glucose [Mass/Vol] 226 mg/dL High 75 - 110 mg/dL [facility] Interpretation and review of laboratory results Abnormal [facility] Glucose [Mass/Vol] 250 mg/dL High 75 - 110 mg/dL [facility] Interpretation and review of laboratory results Abnormal [facility] Surgical Pathologyon 022 Surgical Pathology (NOTE) -- Diagnosis -- PROSTATE, TRANSURETHRAL RESECTION: -BENIGN PROSTATIC GLANDULAR AND STROMAL HYPERPLASIA. Regine Owen M.D. Electronically Signed Out 12/07/2021 Clinical Information Pre-op Diagnosis: BENIGN PROSTATIC HYPERPLASIA WITH LOWER URINARY TRACT SYMPTOMS, SYMPTOM DETAILS UNSPECIFIED Operative Findings: PROSTATE CHIPS Operation Performed: CYSTOSCOPY TRANSURETHRAL RESECTION PROSTATE, 3-WAY CATHETER PLACEMENT WITH IRRIGATION Source of Specimen A: PROSTATE CHIPS Gross Description TITUS VERA, PROSTATE CHIPS Rubbery gallagher fragments, 20 grams in aggregate. Portion 6cs. tm Microscopic Description Microscopic examination performed. SURGICAL PATHOLOGY CONSULTATION Patient Name: TITUS VERA [facility] Rec: [id number] Path Number: [id number] [facility] [employer] [facility] ANATOMIC PATHOLOGY [address] [place] [address]. [place], [place] [address] Normal [facility] Comment on above: Performed By: #### P PPVS #### [address] [address] Flanging Machine Operator: Rafael Rinaldi MD Urinalysison 12-06-2021 Bilirubin Urine Presumptive positive . Unable to confirm due to unavailability of reagent. Abnormal NEGATIVE [facility] Color, UA Dark Yellow Abnormal Yellow [facility] Glucose, Ur Negative NEGATIVE [facility] Interpretation and review of laboratory results Abnormal [facility] Ketones Ql (U) Negative NEGATIVE [facility] Leukocyte esterase Test strip Ql (U) LARGE Abnormal NEGATIVE [facility] Nitrite, Urine Positive Abnormal NEGATIVE [facility] pH, UA 6.5 5 - 8 [facility] Protein, UA 3+ Abnormal NEGATIVE [facility] Specific Rickreall, UA 1.020 1.005 - 1.03 [facility] Turbidity UA Cloudy Abnormal Clear [facility] Urine Hgb 3+ Abnormal NEGATIVE [facility] Urobilinogen, Urine Normal Normal [facility] Urinalysis, Routineon 2021 Bilirubin, SemiQt,Ur Presumptive positive. Unable to confirm due to unavailability of reagent. Abnormal NEG [facility] Comment on above: Performed By: #### U MICAO, UA #### [facility] [address] [place] [address] Flanging Machine Operator: Parish Miller MD Blood, Urine 3+ Abnormal NEG [facility] Comment on above: Performed By: #### U MICAO, UA #### [facility] [address] [place] [address] Flanging Machine Operator: Parish Miller MD Clarity (U) Cloudy Abnormal CLEAR [facility] Comment on above: Performed By: #### U MICAO, UA #### [facility] [address] [place] [facility] [place] [address] Flanging Machine Operator: Parish Miller MD Color (U) Dark Yellow Abnormal YEL [facility] Comment on above: Performed By: #### U MICAO, UA #### [facility] [address] [place] [address] Flanging Machine Operator: Parish Miller MD Glucose Ql (U) Negative Normal NEG [facility] Comment on above: Performed By: #### U MICAO, UA #### [facility] [address] [place] [address] Flanging Machine Operator: Parish Miller MD Ketones Ql (U) Negative Normal NEG [facility] Comment on above: Performed By: #### U MICAO, UA #### [facility] [address] [place] [address]. [place] [address] Flanging Machine Operator: Parish Miller MD Leukocyte esterase Test strip Ql (U) LARGE Abnormal NEG [facility] Comment on above: Performed By: #### U MICAO, UA #### [facility] [address] [place] [address]. [place] [address] Flanging Machine Operator: Parish Miller MD Nitrite,Ur Positive Abnormal NEG [facility] Comment on above: Performed By: #### U MICAO, UA #### [facility] [address] [place] [address]. [place] [address] Flanging Machine Operator: Parish Miller MD PH,Ur 6.5 Normal 5.0-8.0 [facility] Comment on above: Performed By: #### U MICAO, UA #### [facility] [address] [place] [address]. [place] [address] Flanging Machine Operator: Parish Miller MD Protein Ql (U) 3+ Abnormal NEG [facility] Comment on above: Performed By: #### U MICAO, UA #### [facility] [address] [place] [address]. [place] [address] Flanging Machine Operator: Parish Miller MD Spec. Rickreall,Ur 1.020 Normal 1.005-1.030 [facility] Comment on above: Performed By: #### U MICAO, UA #### [facility] [address] [place] [address] Flanging Machine Operator: Parish Miller MD Urobilinogen,Ur Normal Normal NORM [facility] Comment on above: Performed By: #### U MARLENAO, UA #### [facility] [address] [place] [address] Flanging Machine Operator: Parish Miller MD Urinalysis,Microon 2 ----- Normal [facility] Comment on above: Performed By: #### U RAINA, UA #### [facility] [address] [place] [address]. [place] [address] Flanging Machine Operator: Parish Miller MD Epithelial cells LM Ql (Urine sed) 0 TO 2 Normal 0-5 [facility] Comment on above: Performed By: #### U RAINA, UA #### [facility] [address] [place] [address]. [place] [address] Flanging Machine Operator: Parish Miller MD Urine RBC's 50 TO 100 Normal 0-2 [facility] Comment on above: Performed By: #### U RAINA, UA #### [facility] [place] [address] Flanging Machine Operator: Parish Miller MD Urine WBC's TOO NUMEROUS TO COUNT Normal 0-5 [facility] Comment on above: Performed By: #### U MARLENAO, UA #### [facility] [place] [facility] [place] [address] Flanging Machine Operator: Parish Miller MD Basic Metabolic Panelon 07-2 Anion gap [Moles/Vol] 10 mmol/L 9 - 17 mmol/L [facility] Calcium [Mass/Vol] 9.3 mg/dL 8.6 - 10. 4 mg/dL [facility] Chloride [Moles/Vol] 105 mmol/L 98 - 107 mmol/L [facility] CO2 [Moles/Vol] 25 mmol/L 20 - 31 mmol/L [facility] Creatinine [Mass/Vol] 0.96 mg/dL 0.7 - 1.2 mg/dL [facility] GFR >60 60 - PINF mL/min [facility] GFR Non- >60 60 - PINF mL/min [facility] GFR/1.73 sq M.predicted MDRD (S/P/Bld) [Vol rate/Area] [facility] Comment on above: Average GFR for 70 o r more years old: 75 mL/min/1.73sq m Chronic Kidney Disease: <60 mL/min/1.73sq m Kidney failure: <15 mL/min/1.73sq m eGFR calculated using average adult body mass. Additional eGFR calculator available at: http://www.[employer]/multiple_crcl_2011.htm Glucose [Mass/Vol] 173 mg/dL High 70 - 99 mg/dL [facility] Interpretation and review of laboratory results Abnormal [facility] Potassium [Moles/Vol] 4.3 mmol/L 3.7 - 5.3 mmol/L [facility] Sodium [Moles/Vol] 140 mmol/L 135 - 144 mmol/L [facility] Urea nitrogen (BldV) [Mass/Vol] 19 mg/dL 8 - 23 mg/dL [facility] Urea nitrogen/Creatinine (Bld) [Mass ratio] 20 9 - 20 [facility] Basic Metabolic Profon 11-30 (cont.) Normal [facility] Comment on above: Result Comment: Aver age GFR for 70 or more years old: 75 mL/min/1.73sq m Chronic Kidney Disease: <60 mL/min/1.73sq m Kidney failure: <15 mL/min/1.73sq m eGFR calculated using average adult body mass. Additional eGFR calculator available at: http://www.[employer]/multiple_crcl_2011.htm Performed By: #### B MP, CBC #### [facility] [address] [place] [address] Flanging Machine Operator: Parish Miller MD Anion gap [Moles/Vol] 10 mmol/L Normal 9-17 [facility] Comment on above: Performed By: #### B MP, CBC #### [facility] [address] [place] [address] Flanging Machine Operator: Parish Miller MD BUN/CRE Ratio 20 Normal 9-20 [facility] Comment on above: Performed By: #### B MP, CBC #### [facility] [address] [place] [address] Flanging Machine Operator: Parish Miller MD Calcium [Mass/Vol] 9.3 mg/dL Normal 8.6-10.4 [facility] Comment on above: Performed By: #### B MP, CBC #### [facility] [address] [place] [address] Flanging Machine Operator: Parish Miller MD Chloride [Moles/Vol] 105 mmol/L Normal 98-107 [facility] Comment on above: Performed By: #### B MP, CBC #### [facility] [address] [place] [address] Flanging Machine Operator: Parish Miller MD CO2 [Moles/Vol] 25 mmol/L Normal 20-31 [facility] Comment on above: Performed By: #### B MP, CBC #### [facility] [address] [place] [address] Flanging Machine Operator: Parish Miller MD Creatinine [Mass/Vol] 0.96 mg/dL Normal 0.70-1.20 [facility] Comment on above: Performed By: #### B MP, CBC #### [facility] [address] [place] [address] Flanging Machine Operator: Parish Miller MD GFR, Amer >60 Normal >60 [facility] Comment on above: Performed By: #### B MP, CBC #### [facility] [address] [place] [address] Flanging Machine Operator: Parish Miller MD GFR,non Amer >60 Normal >60 [facility] Comment on above: Performed By: #### B MP, CBC #### [facility] [address] [place] [address] Flanging Machine Operator: Parish Miller MD Glucose [Mass/Vol] 173 mg/dL High 70-99 [facility] Comment on above: Performed By: #### B MP, CBC #### [facility] [address] [place] [address] Flanging Machine Operator: Parish Miller MD Potassium [Moles/Vol] 4.3 mmol/L Normal 3.7-5.3 [facility] Comment on above: Performed By: #### B MP, CBC #### [facility] [address] [place] [address] Flanging Machine Operator: Parish Miller MD Sodium [Moles/Vol] 140 mmol/L Normal 135-144 [facility] Comment on above: Performed By: #### B MP, CBC #### [facility] [address] [place] [address] Flanging Machine Operator: Parish Miller MD Urea nitrogen [Mass/Vol] 19 mg/dL Normal 8-23 [facility] Comment on above: Performed By: #### B MP, CBC #### [facility] [address] [place] [address] Flanging Machine Operator: Parish Miller MD CBCon 11-30-2021 Erythrocyte distribution width (RBC) [Ratio] 13.4 % Normal 11.8-14.4 [facility] Comment on above: Performed By: #### B MP, CBC #### [facility] [place] [address] Flanging Machine Operator: Parish Miller MD Hematocrit (Bld) [Volume fraction] 34.2 % Low 40.7-50.3 [facility] Comment on above: Performed By: #### B MP, CBC #### [facility] [address] [place] [address]. [place] [address] Flanging Machine Operator: Parish Miller MD Hemoglobin (Bld) [Mass/Vol] 10.8 g/dL Low 13.0-17.0 [facility] Comment on above: Performed By: #### B MP, CBC #### [facility] [address] [place] [address]. [place] [address] Flanging Machine Operator: Parish Miller MD MCH (RBC) [Entitic mass] 30.2 pg Normal 25.2-33.5 [facility] Comment on above: Performed By: #### B MP, CBC #### [facility] [address] [place] [address]. [place] [address] Flanging Machine Operator: Parish Miller MD MCHC (RBC) [Mass/Vol] 31.6 g/dL Normal 28.4-34.8 [facility] Comment on above: Performed By: #### B MP, CBC #### [facility] [address] [place] [address]. [place] [address] Flanging Machine Operator: Parish Miller MD MCV (RBC) [Entitic vol] 95.5 fL Normal 82.6-102.9 [facility] Comment on above: Performed By: #### B MP, CBC #### [facility] [address] [place] [address] Flanging Machine Operator: Parish Miller MD NRBC Automated 0.0 per 100 WBC Normal 0.0 [facility] Comment on above: Performed By: #### B MP, CBC #### [facility] [address] [place] [address] Flanging Machine Operator: Parish Miller MD Platelet mean volume (Bld) [Entitic vol] 10.2 fL Normal 8.1-13.5 [facility] Comment on above: Performed By: #### B MP, CBC #### [facility] [address] [place] [address] Flanging Machine Operator: Parish Miller MD Platelets (Bld) [#/Vol] 239 10*3/uL Normal 138-453 [facility] Comment on above: Performed By: #### B MP, CBC #### [facility] [address] [place] [address] Flanging Machine Operator: Parish Miller MD RBC (Bld) [#/Vol] 3.58 10*6/uL Low 4.21-5.77 [facility] Comment on above: Performed By: #### B MP, CBC #### [facility] [address] [place] [address] Flanging Machine Operator: Parish Miller MD WBC (Bld) [#/Vol] 6.5 10*3/uL Normal 3.5-11.3 [facility] Comment on above: Performed By: #### B MP, CBC #### [facility] [address] [place] [address] Flanging Machine Operator: Parish Miller MD Hematocrit (Bld) [Volume fraction] 34.2 % Low 40.7 - 50.3 % [facility] Hemoglobin (Bld) [Mass/Vol] 10.8 g/dL Low 13 - 17 g/dL [facility] Interpretation and review of laboratory results Abnormal [facility] MCH (RBC) [Entitic mass] 30.2 pg 25.2 - 33.5 pg [facility] MCHC (RBC) [Mass/Vol] 31.6 g/dL 28.4 - 34.8 g/dL [facility] MCV (RBC) [Entitic vol] 95.5 fL 82.6 - 102.9 fL [facility] NRBC Automated 0.0 0.0 per 100 WBC [facility] Platelet distribution width (Bld) [Ratio] 13.4 % 11.8 - 14.4 % [facility] Platelet mean volume (Bld) [Entitic vol] 10.2 fL 8.1 - 13.5 fL [facility] Platelets (Bld) [#/Vol] 239 10*3/uL [facility] RBC (Bld) [#/Vol] 3.58 10*6/uL Low 4.21 - 5.7 7 m/uL [facility] WBC (Bld) [#/Vol] 6.5 10*3/uL [facility] TYPE AND SCREENon 11-30-2021 ABO/Rh Positive [facility] Arm Band Number [id number] [facility] Expiration Date 12/09/2021,2359 [facility] Type + Screenon 11-30-2021 Type + Screen Sample Expiration 12/09/2021,2359 Arm Band Number [id number] ABO/Rh(D) O POSITIVE Antibody Screen NEGATIVE Normal [facility] Comment on above: Performed By: #### T YS #### [facility] [address] [place] [address] Flanging Machine Operator: Parish Miller MD CBC AUTO DIFFon 09-11-2021 BASO # 0.0 103/ul Normal 0.0-0.1 [facility] Comment on above: Performed By: #### C BC #### [facility] [address] [address] [address] Abe Kelly Basophils/100 WBC (Bld) 0.2 % Normal 0.2-2.0 [facility] Comment on above: Performed By: #### C BC #### [facility] [address] [address] [address] Abe Kelly EO # 0.0 103/ul Normal 0.0-0.7 [facility] Comment on above: Performed By: #### C BC #### [facility] [address] [place] [address] Dr. Abe Kelly Eosinophils/100 WBC (Bld) 0.1 % Critically low 0.9-7.0 [facility] Comment on above: Performed By: #### C BC #### [facility] [address] [place] [address] Dr. Abe Kelly Erythrocyte distribution width (RBC) [Ratio] 12.4 % Normal 11.0-15.0 [facility] Comment on above: Performed By: #### C BC #### [facility] [address] [place] [address] Dr. Abe Kelly Hematocrit (Bld) [Volume fraction] 34.9 % Critically low 42.0-54.0 [facility] Comment on above: Performed By: #### C BC #### [facility] [address] [place] [address] Dr. Abe Kelly Hemoglobin (Bld) [Mass/Vol] 11.5 g/dL Critically low 14.0-18.0 [facility] Comment on above: Performed By: #### C BC #### [facility] [address] [place] [address] Dr. Abe Kelly IG # 0.03 10e3/ul Normal 0.00-0.03 [facility] Comment on above: Performed By: #### C BC #### [facility] [address] [place] [address] Dr. Abe Kelly IG % 0.3 % Normal 0.0-0.5 [facility] Comment on above: Performed By: #### C BC #### [facility] [address] [address] [address] Abe Kelly LYMPH # 1.0 103/ul Critically low 1.2-3.8 [facility] Comment on above: Performed By: #### C BC #### [facility] [address] [place] [address] Dr. Abe Kelly Lymphocytes/100 WBC (Bld) 9.5 % Critically low 20.5-60.0 [facility] Comment on above: Performed By: #### C BC #### [facility] [address] [place] [address] Dr. Abe Kelly MANUAL DIFF REQ NO Normal [facility] Comment on above: Performed By: #### C BC #### [facility] [address] [place] [address] Dr. Abe Kelly MCH (RBC) [Entitic mass] 30.5 pg Normal 25.9-34.0 [facility] Comment on above: Performed By: #### C BC #### [facility] [address] [place] [address] Dr. Abe Kelly MCHC (RBC) [Mass/Vol] 33.0 g/dL Normal 29.9-35.2 [facility] Comment on above: Performed By: #### C BC #### [facility] [address] [place] [address] Dr. Abe Kelly MCV (RBC) [Entitic vol] 92.6 fL Normal 80.0-94.0 [facility] Comment on above: Performed By: #### C BC #### [facility] [address] [place] [address] Dr. Abe Kelly MONO # 1.2 103/ul Critically high 0.3-0.8 [facility] Comment on above: Performed By: #### C BC #### [facility] [address] [place] [address] Dr. Abe Kelly Monocytes/100 WBC (Bld) 10.6 % Normal 1.7-12.0 [facility] Comment on above: Performed By: #### C BC #### [facility] [address] [address] [address] Abe Kelly NEUT # 8.7 103/ul Critically high 1.4-6.5 [facility] Comment on above: Performed By: #### C BC #### [facility] [address] [place] [address] Dr. Abe Kelly Neutrophils/100 WBC (Bld) 79.3 % Critically high 43.0-75.0 [facility] Comment on above: Performed By: #### C BC #### [facility] [address] [place] [address] Dr. Abe Kelly Platelet mean volume (Bld) [Entitic vol] 9.6 fL Normal 9.5-13.5 [facility] Comment on above: Performed By: #### C BC #### [facility] [address] [place] [address] Dr. Abe Kelly PLT 283 103/ul Normal 150-450 [facility] Comment on above: Performed By: #### C BC #### [facility] [address] [place] [address] Dr. Abe Kelly RBC 3.77 106/ul Critically low 4.70-6.10 [facility] Comment on above: Performed By: #### C BC #### [facility] [address] [place] [address] Dr. Abe Kelly WBC 11.0 103/ul Normal 4.0-11.0 [facility] Comment on above: Performed By: #### C BC #### [facility] [address] [place] [address] HEAD WO CONon 09-11-[address]21 CT HEAD WO CON CT head without contrast CLINICAL: Near syncope. Weakness and dizziness. TECHNIQUE: Contiguous transaxial images were obtained from skull base to vertex without administration of intravenous contrast. Dose reduction: mA and/or kV are were adjusted by automated exposure control software based upon patients height and weight. FINDINGS: Comparison made to head CT dated 10/12/2017. There is no focal scalp soft tissue swelling or acute calvarial fracture. The visualized globes and orbits are grossly normal. Visualized paranasal sinuses are clear. Bilateral mastoid air cells are clear. The ventricles and sulci are prominent bilaterally. There is periventricular and deep subcortical white matter low-attenuation consistent with small vessel ischemic disease. 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 There is no intraparenchymal hemorrhage, extraaxial fluid collection, mass lesion, or acute large vessel ischemia by noncontrast CT. IMPRESSION: 1. No acute intracranial hemorrhage or large vessel ischemia by noncontrast CT. 2. Cerebral atrophy chronic small vessel ischemic disease. If the patient has a focal neurologic deficit or there is clinical suspicion for acute cerebrovascular accident, brain MRI would be recommended for further evaluation. Electronically authenticated by: OSBALDO FELIZ Date: 2021-09-11 16:17 [facility] CULTURE BLOODon 09-11-2021 Microscopic examination of blood, culture Culture Observations: NO GROWTH AT 5 DAYS. [facility] Comment on above: Performed By: #### B [id number] #### [facility] [address] [place] [address] Dr. Abe Kelly Microscopic examination of blood, culture Culture Observations: NO GROWTH AT 5 DAYS. [facility] Comment on above: Performed By: #### B LDCX1 #### [facility] [address] [place] [address] Dr. Abe Kelly LACTATE/LACTIC ACIDon 2021 Lactate [Moles/Vol] 1.6 mmol/L Normal 0.4-1.9 [facility] Comment on above: Performed By: #### L ACT #### [facility] [address] [place] [address] Dr. Abe Kelly POINT OF CARE GLUCOSEon Glucose [Mass/Vol] 196 mg/dL Critically high 74-106 T [facility] Comment on above: Performed By: #### P OCGLUC #### [facility] [address] [place] [address] Dr. Abe Kelly PROF 14(COMP METB)on 022 Albumin [Mass/Vol] 2.9 g/dL Critically low 3.4-5.0 [facility] Comment on above: Performed By: #### C MP, HSTROPN #### [facility] [address] [address] [address] Abe Kelly Albumin/Globulin [Mass ratio] 0.7 {ratio} [facility] Comment on above: Performed By: #### C MP, HSTROPN #### [facility] [address] [address] [address] Abe Kelly ALP [Catalytic activity/Vol] 91 U/L Normal 46-116 [facility] Comment on above: Performed By: #### C MP, HSTROPN #### [facility] [address] [place] [address] Dr. Abe Kelly ALT [Catalytic activity/Vol] 40 U/L Normal 16-63 [facility] Comment on above: Performed By: #### C TRUMAN, HSTROPN #### [facility] [address] [place] [address] Dr. Abe Kelly Anion gap [Moles/Vol] 12.1 mmol/L [facility] Comment on above: Performed By: #### C MP, HSTROPN #### [facility] [address] [place] [address] Dr. Abe Kelly AST [Catalytic activity/Vol] 39 U/L Critically high 15-37 [facility] Comment on above: Performed By: #### C TRUMAN, HSTROPN #### [facility] [address] [place] [address] Dr. Abe Kelly Bilirubin [Mass/Vol] 0.5 mg/dL Normal 0.2-1.0 [facility] Comment on above: Performed By: #### C MP, HSTROPN #### [facility] [address] [place] [address] Dr. Abe Kelly Calcium [Mass/Vol] 8.1 mg/dL Critically low 8.5-10.1 Th [facility] Comment on above: Performed By: #### C MP, HSTROPN #### [facility] [address] [address] [address] Abe Kelly Chloride [Moles/Vol] 94 mmol/L Critically low 98-107 [facility] Comment on above: Performed By: #### C MP, HSTROPN #### [facility] [address] [address] [address] Abe Kelly CO2 [Moles/Vol] 27.2 mmol/L Normal 21.0-32.0 [facility] Comment on above: Performed By: #### C MP, HSTROPN #### [facility] [address] [address] [address] Abe Kelly Creatinine [Mass/Vol] 1.27 mg/dL Normal 0.70-1.30 [facility] Comment on above: Performed By: #### C MP, HSTROPN #### [facility] [address] [address] [address] Abe Kelly EGFR-AF [facility] >60 Normal >=60 [facility] Comment on above: Performed By: #### C MP, HSTROPN #### [facility] [address] [address] [address] Abe Kelly EGFR-NON AF [facility] 56 mL/min/1.73m2 Critically low >=60 [facility] Comment on above: Performed By: #### C MP, HSTROPN #### [facility] [address] [address] [address] Abe Kelly Globulin (S) [Mass/Vol] 4.2 g/dL [facility] Comment on above: Performed By: #### C MP, HSTROPN #### [facility] [address] [address] [address] Abe Kelly Glucose [Mass/Vol] 209 mg/dL Critically high 74-106 T [facility] Comment on above: Performed By: #### C MP, HSTROPN #### [facility] [address] [address] [address] Abe Kelly Potassium [Moles/Vol] 4.3 mmol/L Normal 3.5-5.1 [facility] Comment on above: Performed By: #### C MP, HSTROPN #### [facility] [address] [address] [address] Abe Kelly Protein [Mass/Vol] 7.1 g/dL Normal 6.4-8.[address] [facility] Comment on above: Performed By: #### C TRUMAN, HSTROPN #### [facility] [address] [address] [address] Abe Kelly Sodium [Moles/Vol] 129 mmol/L Critically low 136-145 Th [facility] Comment on above: Performed By: #### C TRUMAN, HSTROPN #### [facility] [address] [address] [address] Abe Kelly Urea nitrogen [Mass/Vol] 22.0 mg/dL Critically high 7.0-18.0 [facility] Comment on above: Performed By: #### C TRUMAN, HSTROPN #### [facility] [address] [place] [address] Dr. Abe Kelly Urea nitrogen/Creatinine [Mass ratio] 17.3 mg/mg [facility] Comment on above: Performed By: #### C TRUMAN, HSTROPN #### [facility] [address] [place] [address] Dr. Abe Kelly TROPONIN, HIGH SENSITIVITYon 09-11-2021 HSTROP 9.6 pg/mL Normal 4.0-76.1 [facility] Comment on above: Result Comment: CUT- OFF POINTS HAVE BEEN ESTABLISHED BASED ON THE FOURTH UNIVERSAL DEFINITIONS OF MYOCARDIAL INFARCTION. THE UPPER REFERENCE LIMIT (URL) OF TROPONIN, DEFINED THE 99TH PERCENTILE OF cTnI DISTRIBUTION IN A REFERENCE POPULATION, HAS BEEN CONFIRMED THE DECISION THRESHOLD FOR AK DIAGNOSIS. Performed By: #### C TRUMAN, HSTROPN #### [facility] [address] [place] [address] Dr. Abe Kelly XR CHEST 1 Von 09-11-2021 XR CHEST 1 V EXAMINATION: XR CHES T 1 V HISTORY: Weakness COMPARISON: None. TECHNIQUE: Portable chest FINDINGS: The lung parenchyma is free of consolidation or infiltrate. No pneumothorax or pleural effusion. The cardiac, mediastinal and hilar contours are normal. The visualized osseous structures exhibit no gross abnormality. IMPRESSION: No acute cardiopulmonary abnormality. Electronically authenticated by: REGINE BIRMINGHAM Date: 2021-09-11 15:36 Normal [facility] Vital Signs Date Time Vital Sign Value Performing Clinician Facility 11-29-2023 09:36-0400 Body height 172.72 cm [facility] 11-29-2023 09:36-0400 Body mass index (BMI) [Ratio] 32.3 kg/m2 [facility] 11-29-2023 09:36-0400 Body weight 96.61 kg [facility] 11-29-2023 09:36-0400 Diastolic blood pressure 70 mm[Hg] [facility] 11-29-2023 09:36-0400 Heart rate 62 /min [facility] 11-29-2023 09:36-0400 SaO2% (BldA) [Mass fraction] 94 % [facility] 11-29-2023 09:36-0400 Systolic blood pressure 144 mm[Hg] [facility] 11-29-2022 09:00-0400 Body height 172.72 cm [facility] Other [facility] 11-29-2022 09:00-0400 Body mass index (BMI) [Ratio] 32.99 kg/m2 [facility] Other [facility] 11-29-2022 09:00-0400 Body weight 98.43 kg [facility] Other [facility] Other 11-29-2022 09:00-0400 Diastolic blood pressure 91 mm[Hg] [facility] Other 11-29-2022 09:00-0400 SaO2% (BldA) [Mass fraction] 100 % [facility] 11-29-2022 09:00-0400 Systolic blood pressure 175 mm[Hg] [facility] Other 08-30-2022 11:15-0400 Body height 172.72 cm [facility] Other [facility] Other 08-30-2022 11:15-0400 Body mass index (BMI) [Ratio] 32.76 kg/m2 Regine Amanuel Other [facility] Other 08-30-2022 11:15-0400 Body weight 97.75 kg Regine Amanuel Other [facility] Other 08-30-2022 11:15-0400 Diastolic blood pressure 84 mm[Hg] Regine Amanuel Other [facility] Other 08-30-2022 11:15-0400 SaO2% (BldA) [Mass fraction] 97 % Regine Amanuel Other [facility] Other 08-30-2022 11:15-0400 Systolic blood pressure 154 mm[Hg] Regine Amanuel Other [facility] Other 12-08-2021 08:02-0400 Body temperature 98.2 [degF] Kateryna Mathis MD Work Phone: [employer] 12-08-2021 08:02-0400 Diastolic blood pressure 52 mm[Hg] Kateryna Mathis MD Work Phone: [employer] 12-08-2021 08:02-0400 Heart rate 78 /min Kateryna Mathis MD Work Phone: [employer] 12-08-2021 08:02-0400 Respiratory rate 16 /min Kateryna Mathis MD Work Phone: [employer] 12-08-2021 08:02-0400 SaO2% (BldA) [Mass fraction] 95 % Kateryna Mathis MD Work Phone: [employer] 12-08-2021 08:02-0400 Systolic blood pressure 124 mm[Hg] Kateryna Mathis MD Work Phone: [employer] 12-06-2021 07:31-0400 Body height 172.7 cm Kateryna Mathis MD Work Phone: [facility] [employer] 12-06-2021 07:31-0400 Body mass index (BMI) [Ratio] 32.23 kg/m2 Kateryna Mathis MD Work Phone: [facility] [employer] 12-06-2021 07:31-0400 Body weight 96.16 kg Kateryna Mathis MD Work Phone: [facility] [employer] 11-30-2021 10:35-0400 Body height 172.7 cm Sta 1 [employer] 11-30-2021 10:35-0400 Body mass index (BMI) [Ratio] 32.23 kg/m2 Sta 1 [employer] 11-30-2021 10:35-0400 Body temperature 97.81 [degF] Sta 1 [facility] [employer] 11-30-2021 10:35-0400 Body weight 96.16 kg Sta 1 [employer] 11-30-2021 10:35-0400 Diastolic blood pressure 60 mm[Hg] Sta 1 [facility] [employer] 11-30-2021 10:35-0400 Heart rate 66 /min Sta 1 [facility] [employer] 11-30-2021 10:35-0400 Respiratory rate 16 /min Sta 1 [employer] 11-30-2021 10:35-0400 SaO2% (BldA) [Mass fraction] 100 % Sta 1 [employer] 11-30-2021 10:35-0400 Systolic blood pressure 145 mm[Hg] Sta 1 [employer] 10-26-2021 09:30-0400 Body height 172.72 cm Regine [facility] Other [facility] Other 10-26-2021 09:30-0400 Body mass index (BMI) [Ratio] 31.47 kg/m2 [facility] Other [employer] Other 10-26-2021 09:30-0400 Body weight 93.9 kg [facility] Other [employer] Other 10-26-2021 09:30-0400 Diastolic blood pressure 74 mm[Hg] [facility] Other [employer] Other 10-26-2021 09:30-0400 SaO2% (BldA) [Mass fraction] 99 % [facility] Other [employer] Other 10-26-2021 09:30-0400 Systolic blood pressure 152 mm[Hg] [facility] Other [employer] Other 06-01-2021 10:15-0500 Body height 172.72 cm [facility] Other [employer] Other 06-01-2021 10:15-0500 Body mass index (BMI) [Ratio] 31.93 kg/m2 [facility] Other [employer] Other 06-01-2021 10:15-0500 Body weight 95.26 kg [facility] Other [employer] Other 06-01-2021 10:15-0500 Diastolic blood pressure 75 mm[Hg] [facility] Other [employer] Other 06-01-2021 10:15-0500 SaO2% (BldA) [Mass fraction] 96 % [facility] Other [employer] Other 06-01-2021 10:15-0500 Systolic blood pressure 137 mm[Hg] [facility] Other [employer] Other Encounters Encounter Date Encounter Type Care Provider Facility Start: 07-01-2024 ambulatory Pablo Mummert DO [facility] Start: 06-24-2024 End: 06-24-2024 ambulatory Pablo Mummert DO Facility: [facility] Start: 06-05-2024 ambulatory Pablo Mummert DO Faci lity: [facility] Start: 05-15-2024 End: 05-15-2024 ambulatory Pablo Mummert DO Facility:[facility] Start: 04-09-2024 End: 04-09-2024 ambulatory Pablo Mummert DO Facility: [facility] Start: 04-07-2024 End: 04-07-2024 ambulatory Pablo Mummert DO Facility:[facility] Start: 03-28-2024 End: 03-28-2024 ambulatory Pablosay Glass Facility:[facility] Start: 03-19-2024 End: 03-19-2024 Bamboo flowsheet Sabina Das DO Work Phone: [facility] Start: 03-19-2024 End: 03-19-2024 Bamboo flowsheet Sabina Das DO Work Phone: [facility] Start: 03-19-2024 End: 03-19-2024 ambulatory SABINA DAS Not Available Start: 01-21-2024 End: 01-21-2024 ambulatory Pablo Colleent DO Facility: [facility] Start: 11-29-2023 End: 11-29-2023 ambulatory Kateryna Mathis Facility:[facility] Start: 11-29-2023 End: 11-29-2023 ambulatory [facility] Work Phone: Start: 11-29-2023 End: 11-29-2023 Patient encounter procedure [facility] Work Phone: Start: 11-13-2023 End: 11-13-2023 ambulatory SABINA DAS Not Available Start: 10-23-2023 End: 10-23-2023 ambulatory Pablo Mummert DO Facility:[facility] Start: 10-19-2023 End: 10-19-2023 ambulatory Pablo Mummert DO Facility:[facility] Start: 07-26-2023 End: 07-26-2023 ambulatory Pablo Mummert DO Facility:[facility] Start: 07-23-2023 End: 07-23-2023 ambulatory Pablo Mummert DO Facility: [facility] Start: 04-25-2023 End: 04-25-2023 ambulatory SABINA SUTHERLANDMEGHAN Not Available Start: 12-26-2022 End: 12-26-2022 ambulatory Regine Vital Other [employer] Other Start: 12-26-2022 Telephone encounter Regine Bolton [facility] Start: 11-29-2022 Office outpatient vi sit 25 minutes Regine Vital [facility] Start: 11-29-2022 End: 11-29-2022 ambulatory DO Pablo Colleent Work Phone: [employer] Other Start: 11-29-2022 End: 11-29-2022 Patient encounter procedure DO Pablo Maciast Work Phone: [facility] Work Phone: Start: 08-30-2022 Office outpatient vi sit 25 minutes Regine Vital [facility] Start: 08-30-2022 End: 08-30-2022 ambulatory Regine Vital Other [employer] Other Start: 08-30-2022 End: 08-30-2022 Patient encounter procedure MD Regine Vital Work Phone: [facility] Work Phone: Start: 12-06-2021 End: 12-08-2021 ambulatory PABLO Marques [facility] Start: 12-06-2021 End: 12-08-2021 Subsequent hospital visit by physician Kateryna Mathis MD Work Phone: [facility] Comment on above: Benign prostatic hyp erplasia with lower urinary tract symptoms, symptom details unspecified Start: 11-30-2021 End: 12-05-2021 ambulatory KATERYNA MATHIS Shelli [facility] Start: 11-30-2021 End: 12-04-2021 Subsequent hospital visit by physician Yojana Almeida 1 [facility] Start: 10-26-2021 End: 10-26-2021 ambulatory Regine Vital Other [employer] Other Start: 10-26-2021 Office outpatient vi sit 15 minutes [facility] Start: 09-11-2021 End: 09-11-[address] PIO FLORES Facility:[facility] Start: 06-01-2021 End: 06-01-2021 ambulatory Regine Vital Other [employer] Other Start: 06-01-2021 Office outpatient ne w 45 minutes Regine [facility] Procedures Date Procedure Procedure Detail Performing Clinician Start: 03-19-2024 End: 03-19-2024 Ophth medical xm&eval intermediate estab pt Primary open angle glaucoma (POAG) of both eyes, mild stage (CMS/HCC) Sabina Das DO Work Phone: Comment on above: Primary open angle g laucoma (POAG) of both eyes, mild stage (CMS/HCC) (Primary Dx); Dry eyes; Blepharitis of upper and lower eyelids of both eyes, unspecified type; Type 2 diabetes mellitus without complication, without long-term current use of insulin (CMS/HCC); Age-related nuclear cataract of right eye Start: 12-08-2021 Glucose blood reagen t strip Kateryna Mathis MD Work Phone: Start: 12-08-2021 Glucose blood reagen t strip Kateryna Mathis MD Work Phone: Start: 12-07-2021 Glucose blood reagen t strip Kateryna Mathis MD Work Phone: Start: 12-07-2021 Glucose blood reagen t strip Kateryna Mathis MD Work Phone: Start: 12-07-2021 Glucose blood reagen t strip Kateryna Mathis MD Work Phone: Start: 12-07-2021 Glucose blood reagen t strip Kateryna Mathis MD Work Phone: Start: 12-06-2021 Glucose blood reagen t strip Kateryna Mathis MD Work Phone: Start: 12-06-2021 Glucose blood reagen t strip Kateryna Mathis MD Work Phone: Start: 12-06-2021 Glucose blood reagen t strip Kateryna Mathis MD Work Phone: Start: 12-06-2021 SURGICAL PATHOLOGY REPORT Kateryna Mathis MD Work Phone: Start: 12-06-2021 End: 12-06-2021 Culture bacterial quanttative colony count urine Kateryna Mathis MD Work Phone: Start: 12-06-2021 End: 12-06-2021 Trurl electrosurg rescj prostate bleed complete Kateryna Mathis MD Work Phone: Start: 12-06-2021 Urnls dip stick/tabl et rgnt auto w/o microscopy Kateryna Mathis MD Work Phone: Start: 12-06-2021 End: 12-06-2021 Glucose blood reagent strip Kateryna Mathis MD Work Phone: Start: 11-30-2021 Antibody screen Sta 1 Start: 11-30-2021 Basic metabolic pane l calcium total Ken Moore MD Work Phone: Start: 11-30-2021 Blood typing serolog ic abo Ken Moore MD Work Phone: Plan of Treatment Date Care Activity Detail Author Start: 02-19-2026 DTaP/Tdap/Td vaccine (2 - Td or Tdap) DTaP/Tdap/Td vaccine (2 - Td or Tdap) [facility] Start: 07-23-2024 End: 07-23-2024 Patient encounter procedure 07/23/2024 9:00 AM EDT Office Visit [facility] [address] [place] [id number] Sabina Das, [address] [place] [address] [facility] Start: 01-05-2022 Influenza vaccination Flu vaccine (# 1) [facility] Start: 12-06-2021 End: 12-06-2021 Admission to same day surgery center 12/06/2021 Surgery IP Unit Kateryna Mathis MD [address] [place], [place] [id number] CYSTOSCOPY TRANSURETHRAL RESECTION PROSTATE [facility] Comment on above: CYSTOSCOPY TRANSURET HRAL RESECTION PROSTATE Start: 12-06-2021 Subsequent hospital visit by physician 12/06/2021 Hospital Encounter IP Unit Kateryna Mathis MD [address] [place] [address] [facility] Start: 12-06-2021 End: 12-06-2021 Trurl electrosurg rescj prostate bleed complete CYSTOSCOPY TRANSURETHRAL RESECTION PROSTATE Benign prostatic hyperplasia with lower urinary tract symptoms, symptom details unspecified 12/06/2021 9:30 AM EDT [facility] Start: 02-07-2013 Abdominal aortic aneurysm screening AAA screen [facility] Start: 02-07-2013 Pneumococcal 65+ yea rs Vaccine (1 - PCV) Pneumococcal 65+ years Vaccine (1 - PCV) [facility] Start: 02-07-2013 Pneumococcal Vaccine : 65+ Years (1 of 1 - PCV) Pneumococcal Vaccine: 65+ Years (1 of 1 - PCV) [facility] Start: 02-07-1998 Shingles vaccine (1 of 2) Shingles vaccine (1 of 2) [facility] Start: 02-07-1993 Screening for malign ant neoplasm of colon [facility] Start: 02-07-1966 Hepatitis C screening Hepatitis C sc reen [facility] Start: 1960 Depression Screen Depression Screen [facility] Start: 02-07-1958 Lipid panel Lipids [facility] Start: 1948 Annual Wellness Visi t (AWV) Annual Wellness Visit (AWV) [facility] Oxygen therapy [[facility] Data Set] Initiate Oxygen Therapy Protocol Respiratory Care Routine As Needed until discontinued starting 12/06/2021 [facility] [employer] Work Phone: Comment on above: As Needed until disc ontinued starting 12/06/2021 Surgical Pathology Surgical Path ology Lab Routine Benign prostatic hyperplasia with lower urinary tract symptoms, symptom details unspecified Release Upon Ordering for 1 Occurrences starting 12/06/2021 [facility] [employer] Work Phone: Comment on above: Release Upon Orderin g for 1 Occurrences starting 12/06/2021 Immunizations Immunization Date Immunization Notes Care Provider Fa [facility] 08-03-2021 COVID-19, PFIZER GRA Y top, DO NOT Dilute, (age 12 y+), IM, 30 mcg/0.3 mL Kateryna Mathis MD [facility] Work Phone: 08-03-2021 COVID-19, PFIZER PUR PLE top, DILUTE for use, (age 12 y+), 30mcg/0.3mL Kateryna Mathis MD Work Phone: [facility] [employer] Work Phone: 01-31-2021 Influenza, High-dose , Quadv, 65 yrs +, IM (Fluzone) Kater[facility] Mathis MD [facility] Work Phone: 02-12-2020 Influenza, Quadv, adjuvanted, 65 yrs +, IM, PF (Fluad) Kateryna Mathis MD [facility] Work Phone: 02-07-2019 Seasonal trivalent influenza vaccine, adjuvanted, preservative free Kateryna Mathis MD Work Phone: [employer] Work Phone: 02-09-2018 Seasonal trivalent influenza vaccine, adjuvanted, preservative free Kateryna Mathis MD Work Phone: [employer] Work Phone: 02-06-2017 influenza, injectabl e, quadrivalent, preservative free Kateryna Mathis MD Work Phone: [employer] Work Phone: 03-08-2016 influenza, high dose seasonal, preservative-free Kateryna Mathis MD Work Phone: [employer] Work Phone: 02-20-2016 tetanus toxoid, redu nathalie diphtheria toxoid, and acellular pertussis vaccine, adsorbed Kateryna Mathis MD Work Phone: [employer] Work Phone: 03-01-2015 influenza, high dose seasonal, preservative-free Kateryna Mathis MD Work Phone: [employer] Work Phone: Payers Date Payer Category Payer Self-pay 2024 Unknown [id number] 2022 Private Health Insurance BRITTNY price [id number] 2020 Medicare MEDICARE [id number] 1959 Medicare [id number] 1959 Unknown [id number] 1948 Unknown [id number] 1948 Unknown [id number] 1948 Unknown [id number] 1948 Unknown [id number] 1948 Unknown [id number] 1948 Unknown [id number] 1948 Unknown [id number] 1948 Unknown [id number] 1948 Unknown [id number] 1950 Unknown [id number] [id number] .718 1950 Unknown [id number] 2.16.840.1.229376.3.579.2 .718 1950 Unknown [id number] 2.16.840.1.092079.3.579.2 .718 1950 Unknown [id number] 2.16.840.1.068796.3.579.2 .718 1950 Unknown [id number] 2.16.840.1.257644.3.579.2 .718 1950 Unknown [id number] 2.16.840.1.662125.3.579.2 .718 1950 Unknown [id number] 2.16.840.1.805782.3.579.2 .718 1950 Unknown [id number] 2.16.840.1.276419.3.579.2 .718 1950 Unknown [id number] 2.16.840.1.221046.3.579.2 .8 1950 Unknown [id number] 2.16.840.1.270804.3.579.2 . Unknown [id number] 2.16.840.1.500547.3.579.2 .531 Social History Date Type Detail Facility Start: 03-19-[address] [facility] [employer] Other Start: 11-30-2021 End: 03-19-2024 Tobacco smoking status OKIS Ex-smoker [employer] Phone: End: 05-07-1975 History of tobacco use Current smoker [facility] Phone: End: 05-07-1975 History of tobacco use Cigarette Smoker [facility] [employer] Phone: Start: 11-30-2021 End: 03-19-2024 Tobacco use and exposure Smokeless tobacco non-user [facility] Phone: Start: 11-30-2021 End: 12-06-2021 Alcohol intake Current drinker of alcohol (finding) [facility] [facility] [employer] Phone: Start: 11-30-2021 History SDOH Alcohol Comment socially [facility] Phone: Start: 1950 Sex Assigned At Not on file [facility] Phone: Start: 11-20-2021 End: 12-06-2021 Exposure to SARS-CoV-2 (event) Not sure [facility] Phone: Start: 1950 Sex Assigned At Male [facility] Start: 03-19-2024 History of Social function [facility] Medical Equipment Procedure Code Equipment Code Equipment Origin al Text Equipment Identifier Dates Start: 12-10-2021 Clinical Notes 10-26-2021 to 05-29-2024 Sabina Das DO - 03/19/2024 10:30 AM EST Note Date & Type Note Facility 05-29-2024 Note Entered by ANALILIA HINOJOSA MA on May 29, 2024 07:33:34 EST From: GLENNA HINOJOSA MA To: [facility]/pharmacy #[id number] Sent: 05/29/2024 07:33:34 EST Subject: Medication Management Submitted: Complete:metFORMIN (metFORMIN 850 mg oral tablet) Signed by GLENNA HINOJOSA MA 05/29/2024 07:33:00 EST Approved with modifications: metFORMIN (METFORMIN HCL 850 MG TABLET) TAKE 1 TABLET BY MOUTH TWICE A DAY Qty: 180 tab(s) Days Supply: 90 Refills: 3 Substitutions Allowed Route To Pharmacy - [facility]/pharmacy #[id number] Signed by GLENNA HINOJOSA MA ------ From: [id number] To: Pablo Glass DO, DO Sent: May 28, 2024 11:25:49 PM LIVESTOCK SHOWMAN Subject: Medication Management Due: May 29, 2024 12:07:11 AM LIVESTOCK SHOWMAN On Hold Pending Signature Dispensed Drug: metFORMIN (metFORMIN 850 mg oral tablet), TAKE 1 TABLET BY MOUTH TWICE A DAY Quantity: 180 tab(s) Days Supply: 90 Refills: 3 Substitutions Allowed Notes from Pharmacy: ------ [facility] 03-27-2024 Note Entered by ANALILIA HINOJOSA MA on March 27, 2024 07:38:54 EST From: GLENNA HINOJOSA MA To: [facility]/pharmacy #[id number] Sent: 03/27/2024 07:38:54 EST Subject: Medication Management Submitted: Complete:pioglitazone (pioglitazone 30 mg oral tablet) Signed by GLENAN HINOJOSA MA 03/27/2024 07:38:00 EST Approved with modifications: pioglitazone (PIOGLITAZONE HCL 30 MG TABLET) TAKE 1 TABLET BY MOUTH EVERY DAY Qty: 90 tab(s) Days Supply: 90 Refills: 3 Substitutions Allowed Route To Pharmacy - [facility]/pharmacy #[id number] Signed by GLENNA HINOJOSA MA ------ From: [id number] To: Pablo Glass DO, DO Sent: March 27, 2024 1:03:59 AM [employer]STOCK SHOW[employer] Subject: Medication Management Due: March 28, 2024 1:03:46 AM [employer]IVESTOCK SHOWMAN On Hold Pending Signature Dispensed Drug: pioglitazone (pioglitazone 30 mg oral tablet), TAKE 1 TABLET BY MOUTH EVERY DAY Quantity: 90 tab(s) Days Supply: 90 Refills: 3 Substitutions Allowed Notes from Pharmacy: ------ [facility] 03-19-2024 History of Presen t illness Narrative Images from the original note were not included. Assessment/Plan Assessment/Plan Diagnoses and all orders for this visit: Type 2 diabetes mellitus without complication, without long-term current use of insulin (CMS/HCC) - Diabetes Mellitus without sign of diabetic retinopathy on dilated retinal examination today OU: Discussed the pathophysiology of diabetes and its effect on the eye. Stressed the importance of strong glucose control. Advised of importance of at least yearly dilated examinations, but to contact us immediately for any problems or concerns. Primary open angle glaucoma (POAG) of both eyes, mild stage (CMS/HCC) - Primary open angle glaucoma OU - Importance of taking medications as prescribed was stressed. Patient was advised to report any inability or unwillingness to take medications or if cost is a concern. Patient must report any side effects that may develop. Patient must report any change in systemic medications as they may interact or interfere with their glaucoma medications. Patient will be dilated at least on an annual basis for optic nerve evaluation and will likely have an automated visual field examination at least once a year. It was explained to the patient that they might require additional treatment for intraocular pressure control such as laser therapy or surgical intervention. - h/o SLT (05/2022). Nice result. Repeat SLT (12/2023). Not much of a result. - Cont. Latanoprost both eyes (OU) at bedtime. Pt understands need for compliance. Age-related nuclear cataract of right eye - Cataract, OD: Observe for now without intervention. The patient was advised to contact us if any change or worsening of vision Dry eyes - Dry Eyes OU -- Environmental changes to minimize dryness and exposure and the use of artificial tears were recommended. Blepharitis of upper and lower eyelids of both eyes, unspecified type - Blepharitis, posterior type OU - The patient exhibits inspissated meibomian glands. Warm compresses, lid massage and lid scrubs were recommended. documented in this encounter [facility] 03-10-2024 Note Entered by ANALILIA HINOJOSA MA on March 10, 2024 07:46:04 EST From: GLENNA HINOJOSA MA To: [facility]/pharmacy #[id number] Sent: 03/10/2024 07:46:04 EST Subject: Medication Management Submitted: Complete:metoprolol (Metoprolol Succinate ER 25 mg oral tablet, extended release) Signed by GLENNA HINOJOSA MA 03/10/2024 07:46:00 EST Approved with modifications: metoprolol (METOPROLOL SUCC ER 25 MG TAB) TAKE 1 TABLET BY MOUTH EVERY DAY Qty: 90 tab(s) Days Supply: 90 Refills: 3 Substitutions Allowed Route To Pharmacy - [facility]/pharmacy #[id number] Signed by GLENNA HINOJOSA MA ------ From: [id number] To: Pbalo Glass DO, DO Sent: March 09, 2024 6:39:58 AM [employer]ST[employer] SH[employer] Subject: Medication Management Due: March 10, 2024 12:06:41 AM [employer] SH[employer] On Hold Pending Signature Dispensed Drug: metoprolol (Metoprolol Succinate ER 25 mg oral tablet, extended release), TAKE 1 TABLET BY MOUTH EVERY DAY Quantity: 90 tab(s) Days Supply: 90 Refills: 4 Substitutions Allowed Notes from Pharmacy: ------ [facility] 11-29-2022 Evaluation note Encounter Date Diagnosis Assessment Notes Nov, Obstructive sleep apnea (ICD-10 - G47.33) He is now using and benefiting from treatment. We again reviewed the medical accident and functional risks of untreated sleep apnea, and I encouraged him to keep using the machine every night. He will call if problems. If all goes well we will see him back in a year Nov, BMI 32.0-32.9,adult (ICD-10 - Z68.32) Weight reduction would be broadly beneficial for overall health, but would also have direct benefits on apnea severity and sleep quality. Even moderate weight reduction can affect RONNI and snoring, and in some patients weight reduction can completely resolve sleep apnea Nov, Essential hypertension (ICD-10 - I10) His blood pressure today was on the high side, he says, because he only took his medicine about 1/2-hour ago. Generally he reports good control. Control of sleep apnea will frequently have a positive effect on blood pressure control, and may additionally reduce blood pressure lability. [employer] Other 04-26-2023 Evaluation note* Encounter Date Diagnosis Assessment Notes Treatment Notes Treatment Clinical Notes Aug, Obstructive sleep apnea (ICD-10 - G47.33) He is struggling to use the machine as effectively now as he did before. He did have several months without use, and now is at 4 hours only 40% of the time. Mask fit is an issue for him, but the pressure itself does not seem to be a problem. We discussed some masks which may address his problems (F30-I, D. HARJIT fullface, DreamWear full face). Due to his intolerance and the severity of his apnea I also outlined Inspire Therapy but is not interested in that right now. He will work on using the machine more effectively and we anticipate return in 3 months Aug, Intolerance of continuous positive airway pressure (CPAP) ventilation (ICD-10 - Z78.9) He has struggled with mask fit and toleration. We will try to address the issues he is identified. We did discuss inspire therapy as an alternative should he prove unable to tolerate CPAP. Emphasized the importance of finding some way, any way that controls his severe sleep apnea Aug, BMI 32.0-32.9,adult (ICD-10 - Z68.32) Weight reduction would be broadly beneficial for overall health, but would also have direct benefits on apnea severity and sleep quality. Even moderate weight reduction can affect RONNI and snoring, and in some patients weight reduction can completely resolve sleep apnea Aug, Essential hypertension (ICD-10 - I10) Control of sleep apnea will frequently have a positive effect on blood pressure control, and may additionally reduce blood pressure lability. [employer] Other 08-04-2022 History of Present illness Narrative* Sophia Carmona RN - 12/08/2021 3:50 PM EDT The pt was discharged to home. The discharge instructions were given and reviewed with the pt and his . They were instructed on jameson care. He was escorted to the exit per wheelchair in stable condition. * Jagdeep Adhikari MD - 12/07/2021 4:09 PM EDT Images from the original note were not included. Jagdeep Adhikari MD Urology Progress Note Subjective: Follow-up TUR prostate patient clinically doing very well Patient Vitals for the past 24 hrs: BP Temp Temp src Pulse Resp SpO2 12/07/21 1549 (!) 130/53 97.9 F (36.6 C) Oral 87 16 100 % 12/07/21 1144 (!) 111/47 99.1 F (37.3 C) Oral 79 16 100 % 12/07/21 0831 (!) 122/51 99.9 F (37.7 C) Oral (!) 101 16 97 % 12/07/21 0428 (!) 114/47 98.4 F (36.9 C) -- 89 18 96 % 12/07/21 0023 (!) 105/45 98.4 F (36.9 C) -- 76 18 95 % 12/06/21 1952 (!) 118/52 98.1 F (36.7 C) -- 81 18 94 % Intake/Output Summary (Last 24 hours) at 12/07/2021 1609 Last data filed at 12/07/2021 0806 Gross per 24 hour Intake 1086.94 ml Output 1900 ml Net -813.06 ml No results for input(s): WBC, HGB, HCT, MCV, PLT in the last 72 hours. No results for input(s): NA, K, CL, CO2, PHOS, BUN, CREATININE, CA in the last 72 hours. Recent Labs 12/06/21 0900 COLORU Dark Yellow* PHUR 6.5 WBCUA TOO NUMEROUS TO COUNT RBCUA 50 TO 100 SPECGRAV 1.020 LEUKOCYTESUR LARGE* UROBILINOGEN Normal BILIRUBINUR Presumptive positive. Unable to confirm due to unavailability of reagent.* Additional Lab/culture results: Physical Exam: Alert oriented sitting in bed family at bedside, discussed with patient and family the cloudiness of the urine, low-grade fever, urinary tract infection, we will hold off on discharge continue antibiotic therapy Interval Imaging Findings: Impression: Patient Active Problem List Diagnosis BPH with obstruction/lower urinary tract symptoms Plan: Plan for discharge in a.m. continue bladder irrigation today Jagdeep Adhikari MD 4:09 PM 12/07/2021 * Huma Wilson RN - 12/06/2021 2:15 PM EDT Pt admitted to room. Oriented to room 2008 from PACU, call light and bed mechanics. Side rails up x2. Call light within reach. Orders reviewed. [facility] Phone: 1(340) 277-658108-04-2022 Hospital Discharge instructions* Discharge Instructions* Sophia Carmona RN - 12/08/2021 3:16 PM EDT Use soap and water daily to clean the jameson. Start at the top ( insertion site) and wipe downwards ( away) * Discharge Instr - Activity* Huma Wilson RN - 12/07/2021 7:59 PM EDT Call Doctor: Symptoms such as fever, chills, nausea, or vomiting get worse or appear for the first time. You have new pain in your back just below your rib cage. This is called flank pain. There is new blood or pus in your urine. You have any problems with your antibiotic medicine. * Attachments The following attachments cannot be sent through Care Everywhere. * TURP: Post-op (Bruneian) * Indwelling Urinary Catheter Care: General Info (Bruneian) * UTI (Urinary Tract Infection): Male (Bruneian) [facility] Phone: [phone]) 219-885306-22-2022 Evaluation note* Encounter Date Diagnosis Assessment Notes Treatment Notes Treatment Clinical Notes Oct, Obstructive sleep apnea (ICD-10 - G47.33) Fortunately the patient is using and benefiting from treatment. We will try mask refitting, and consider mask selector. We will increase to minimum 6 maximum 17. Call if problems or difficulties. If all goes well anticipate return 1 year Oct, Other Call if any questions or problems. Patient is advised to work on healthy diet choices and appropriate servings, weight control, regular exercise as directed, and reduce fat intake. Use machine regularly, and keep up with mask changes as needed. Call if problems with mask toleration, increased sleepiness, or poor response to treatment. . [employer] Other Evaluation noteNortSiperian Other Evaluation note* Diagnosis BPH with obstruction/lower urinary tract symptoms- Primary Hypertrophy of prostate with urinary obstruction and other lower urinary tract symptoms (LUTS) Benign prostatic hyperplasia with lower urinary tract symptoms, symptom details unspecified documented in this encounter [facility] Work Phone: evaluation noteNo assessment information available [facility] Work Phone: Evaluation noteNo InformationNortSiperian Other Evaluation note* Diagnosis Primary open angle glaucoma (POAG) of both eyes, mild stage (CMS/HCC)- Primary Dry eyes Unspecified tear film insufficiency Blepharitis of upper and lower eyelids of both eyes, unspecified type Type 2 diabetes mellitus without complication, without long-term current use of insulin ([facility]) Age-related nuclear cataract of right eye [facility] N[facility]ative - Reported* Type Description Date Medical History HTN Medical History Hyperlipidemia Medical History DM-II Medical History RONNI [employer] Other History general Narrative - ReportedNoCleanBeeBaby Other Summary Purpose Family History No Family History Records Found Relationship Condition Age at Onset Recorded Date/T isaiah aunt Diabetes mellitus Unknown father Unknown mother Malignant neoplasm Unknown Unknown Hypertension Unknown Heart disease Unknown Advance Directives No Advanced Directives Records FoundLatest Code Status on File Code Status Date Activated Date Inactivated Comments Full Code 12/06/2021 2:15 PM Healthcare Agents on File Name Relationship Healthcare Agent [facility] p Communication Rosaura Vera Spouse Primary Decision Maker Advance Directive Response Recorded Date/ Time Advance Directives NN November 28, 11:30am Chief Complaint and Reason for Visit Chief Complaint RONNI - [place] Chief Complaint Obstructive sleep ap sienna Chief Complaint RONNI/Annual Additional Source Comments (unrecognized sect ion and content) No Status Records FoundNo Status Records FoundNo Status Records FoundNo Status Records FoundNo Status Records Found INFORMATION SOURCE (unrecogn ized section and content) DATE CREATED AUTHOR 09/18/2021 [facility] DATE CREATED AUTHOR AUTHOR'S ORGANIZ ATION 12/09/2021 [facility] DATE CREATED AUTHOR AUTHOR'S ORGANIZ ATION 03/21/2024 [facility] EPIC DATE CREATED AUTHOR AUTHOR'S ORGANIZ ATION 04/03/2024 [facility] DATE CREATED AUTHOR AUTHOR'S ORGANIZ ATION 07/09/2024 [facility] REASON FOR VISIT (unrecogniz ed section and content) Specialty Diagnoses / Procedures Referred By Contac t Referred To Contact Diagnoses Benign prostatic hyperplasia with lower urinary tract symptoms, symptom details unspecified Benign prostatic hyperplasia with lower urinary tract symptoms, symptom details unspecified [N40.1] Procedures [place] TRANSURETHRAL ELEC-SURG PROSTATECTOM CYSTOSCOPY TRANSURETHRAL RESECTION PROSTATE Kateryna Mathis MD [address] [place] [address] [facility] [id number] [place] [address] Referral ID Status Reason Start Date Expiration Date Visits Re quested Visits Authorized [id number] 1 1 Reason Comments Follow-up Glaucoma Care Teams (unrecognized sec tion and content) Wood Technologist Relationship Specialty Start Date End Date Pablo Glass DO [address] [place] [address] PCP - General Internal Medicine 11/30/21 Wood Technologist Relationship Specialty Start Date End Date Pablo Glass DO [address] [place] [id number] PCP - General Internal Medicine 11/30/21 Team Status: Inactive Member Role Status Dates Regine Vital MD Attending Provider Active Team Status: Active Member Role Status Dates Pablo lGass DO Primary Care Provider Active Team Status: Inactive Member Role Status Dates Regine Vital MD Attending Provider Active Pablo Glass DO Primary Care Provider Active Team Status: Inactive Member Role Status Dates Pablo Glass DO Primary Care Provider Active Start: November 29, 2023 End: November 29, 2023 Regine Vital MD Attending Provider Active S tart: November 29, 2023 End: November 29, 2023 Wood Technologist Relationship Specialty Start Date End Date Pablo Glass DO [address] [place] [address] [phone] PCP - General Internal Medicine 04/25/23 Georges Becerra, OD [address] [place] [address] Referring Physician Optometry 11/13/23 Wood Technologist Relationship Specialty Start Date End Date Pablo Glass DO [address] [place] [address] [phone] PCP - General Internal Medicine 04/25/23 Georges Becerra, OD [address] [place] [address] Referring Physician Optometry 11/13/23 Scheduled Active and Recently Administ ered Medications (unrecognized section and content) Medication Order 12/06/2021 12/07/2021 12/08/2021 atorvastatin (LIPITOR) tablet 10 mg 10 mg, Oral, DAILY, First dose on Sun12/06/21 at 1445, Until Discontinued 1713 (Given - Provider: Huma Wilson RN) 1010 (Given - Provider: Huma Wilson RN) 0935 (Given - Provider: Sophia Carmona, GUICHO) ceFAZolin (ANCEF) 2000 mg in dextrose 5 % 50 mL IVPB (COMPLETED) 2,000 mg, IntraVENous, ONCE, 1 dose, On Sun12/06/21 at 0815, Antimicrobial Indications: Surgical Prophylaxis, STAT 0948 (Given - Provider: Pauline Celis, LEAD APPLICATION ARCHITECT - CHAIN HOIST OPERATOR) cefepime (MAXIPIME) 1000 mg IVPB minibag 1,000 mg, IntraVENous, at 12.5 mL/hr, Administer over 240 Minutes, EVERY 12 HOURS, First dose on Sun12/06/21 at 1600, For 5 days 1718 (New Bag - Provider: Huma Wilson RN)1729 (Rate/Dose Verify - Provider: Huma Wilson RN)1846 (Rate/Dose Verify - Provider: Huma Wilson RN)2118 (Stopped - Provider: Selena Shultz RN) 0420 (New Bag - Provider: Selena Shultz RN)0806 (Rate/Dose Verify - Provider: Selena Shultz RN)0820 (Stopped - Provider: Huma Wilson RN)1627 (New Bag - Provider: Jayna Candelario RN)1849 (Rate/Dose Verify - Provider: Huma Wilson RN)2030 (Stopped - Provider: Nancy Alarcon RN) 0415 (New Bag - Provider: Nancy Alarcon RN)0815 (Stopped - Provider: Sophia Carmona RN)1600 (Due) docusate sodium (COLACE) capsule 100 mg 100 mg, Oral, 2 TIMES DAILY, First dose on Sun12/06/21 at 2100, Until Discontinued, Do not crush or break. 0218 (Given - Provider: Selena Shultz RN)1009 (Given - Provider: Huma Wilson RN)2118 (Given - Provider: Nancy Alarcon RN) 0935 (Given - Provider: Sophia Carmona, GUICHO)2100 (Due) enoxaparin (LOVENOX) injection 40 mg 40 mg, SubCUTAneous, DAILY, First dose on Sun12/07/21 at 0900, Until Discontinued, Indication of Use: Prophylaxis-DVT/PE 1011 (Given - Provider: Huma Wilson RN) 0935 (Given - Provider: Sophia Carmona, GUICHO) insulin regular (HUMULIN R;NOVOLIN R) injection 4 Units (COMPLETED) 4 Units, IntraVENous, ONCE, 1 dose, On Sun12/06/21 at 0845, STAT 0824 (Given - Provider: Unique Oneil, GUICHO) latanoprost (XALATAN) 0.005 % ophthalmic solution 1 drop 1 drop, Both Eyes, NIGHTLY, First dose on Sun12/07/21 at 2100, Until Discontinued 2119 (Given - Provider: Nancy Alarcon, GUICHO) 2100 (Due) lisinopril (PRINIVIL;ZESTRIL) tablet 40 mg 40 mg, Oral, DAILY, First dose on Sun12/06/21 at 1615, Until Discontinued 1712 (Given - Provider: Huma Wilson RN) 1010 (Given - Provider: Huma Wilson RN) 0935 (Given - Provider: Sophia Carmona RN) metFORMIN (GLUCOPHAGE) tablet 850 mg 850 mg, Oral, 2 TIMES DAILY WITH MEALS, First dose on Sun12/06/21 at 1700, Until Discontinued 171 (Given - Provider: Huma Wilson RN) 1010 (Given - Provider: Huma Wilson RN)1628 (Given - Provider: Jayna Candelario RN) 0939 (Given - Provider: Sophia Carmona RN)1700 (Due) metoprolol succinate (TOPROL XL) extended release tablet 25 mg 25 mg, Oral, DAILY, First dose on Sun12/07/21 at 0900, Until Discontinued, Do not crush or chew. 1009 (Given - Provider: Huma Wilson RN) 0935 (Given - Provider: Sophia Carmona RN) pioglitazone (ACTOS) tablet 30 mg 30 mg, Oral, DAILY, First dose on Sun12/06/21 at 1615, Until Discontinued 1713 (Given - Provider: Huma Wilson RN) 1010 (Given - Provider: Huma Wilson RN) 0935 (Given - Provider: Sophia Carmona RN) tamsulosin (FLOMAX) capsule 0.4 mg 0.4 mg, Oral, DAILY, First dose on Sun12/06/21 at 1615, Until Discontinued, Do not crush or break. 1713 (Given - Provider: Huma Wilson, GUICHO) 1010 (Given - Provider: Huma Wilson RN) 0935 (Given - Provider: Sophia Carmona RN) Continuous Medication Order 12/06/2021 12/07/2021 12/08/2021 0.9 % sodium chloride infusion (CANCELED) IntraVENous, at 100 mL/hr, CONTINUOUS, Starting on Sun12/06/21 at 1445 1428 (New Bag - Provider: Huma Wilson RN)1718 (Stopped - Provider: Huma Wilson RN)2119 (Restarted - Provider: Selena Shultz RN) 0453 (New Bag - Provider: Selena Shultz RN)0659 (Stopped - Provider: Selena Shultz RN)0800 (Stopped - Provider: Huma Wilson RN) lactated ringers infusion (CANCELED) IntraVENous, at 125 mL/hr, CONTINUOUS, Starting on Sun12/07/21 at 0000, Pre-op (day of surgery) 0752 (New Bag - Provider: Unique Oneil RN)0935 (Paused - Provider: MAVIS Sidhu CRNA - Comment: Switch to gravity)0936 (Restarted - Provider: MAVIS Sidhu CRNA) 1016 (Stopped - Provider: Huma Wilson RN) PRN Medication Order 12/06/2021 12/07/2021 12/08/2021 ondansetron (ZOFRAN) injection 4 mg(Linked Group 1) 4 mg, IntraVENous, EVERY 6 HOURS PRN, Starting on Sun12/06/21 at 1415, Until Discontinued, Nausea, Vomiting, Administer if oral route cannot be used. ondansetron (ZOFRAN-ODT) disintegrating tablet 4 mg(Linked Group 1) 4 mg, Oral, EVERY 8 HOURS PRN, Starting on Sun12/06/21 at 1415, Until Discontinued, Nausea, Vomiting opium-belladonna (B&O SUPPRETTES) 16.2-30 MG suppository 30 mg mg dosing is based on opium component, 30 mg, Rectal, EVERY 6 HOURS PRN, Starting on Sun12/06/21 at 1415, Until Discontinued, Bladder Spasms, PRN for bladder spasms. sodium chloride 0.9 % irrigation (COMPLETED) CONTINUOUS PRN, Starting on Sun12/06/21 at 1026, Intra-op 1026 (New Bag - Provider: Kateryna Mathis MD) traMADol (ULTRAM) tablet 50 mg 50 mg, Oral, EVERY 6 HOURS PRN, Starting on Sun12/06/21 at 1415, Until Discontinued, Pain Severe (7-10), Pain Moderate (4-6) Linked Groups Order Group 1: ondansetron (ZOFRAN-ODT) disintegrating tablet 4 mgJump to med 4 mg, Oral, EVERY 8 HOURS PRN, Starting on Sun12/06/21 at 1415, Until Discontinued, Nausea, Vomiting Or ondansetron (ZOFRAN) injection 4 mgJump to med 4 mg, IntraVENous, EVERY 6 HOURS PRN, Starting on Sun12/06/21 at 1415, Until Discontinued, Nausea, Vomiting
Administer if oral route cannot be used.
Goals (unrecognized section and content) Goals may be documented in a n alternate section FOR RECORDS PERTAINING TO PATIENTS WHO ARE OR HAVE BEEN ENROLLED IN A CHEMICAL DEPENDENCY/SUBSTANCEABUSE PROGRAM, SOME INFORMATION MAY BE OMITTED. This clinical summary was aggregated from multiple sources. Caution should be exercised in using it in the provision of clinical care. This summary normalizes information from multiple sources, and as a consequence, information in this document may materially change the coding, format and clinical context of patient data. In addition, data may be omitted in some cases. CLINICAL DECISIONS SHOULD BE BASED ON THE PRIMARY CLINICAL RECORDS. [employer] provides no warranty or guarantee of the accuracy or completeness of information in this document.
== END 2024-07-21 10:32 | disposition home or self-care (01) ==
LOC: EC 10:31
PROVIDERS: Visit Provider Orthopaedic Surgery
DX: S72.002D Fracture of unspecified part of neck of left femur, subsequent encounter for closed fracture with routine healing (principal); Z98.890 Other specified postprocedural states
CPT/HCPCS: 73502

== ENCOUNTER 2024-09-10 12:56 | Outpatient (RCR) | payer MEDICARE, SELFPAY | END 2024-10-24 07:07 | disposition home or self-care (01) | LOC: PT 12:56 | PROVIDERS: Visit Provider Orthopaedic Surgery | DX: S72.002D Fracture of unspecified part of neck of left femur, subsequent encounter for closed fracture with routine healing (principal) | CPT/HCPCS: 97110; 97112; 97163 ==